=== PATIENT | male | born 1950 | race Caucasian/White ===

== ENCOUNTER 2018-03-22 14:35 | Inpatient (IN) ==
[2018-03-22] MEDS ORDERED: Naloxone 0.4 MG/ML INJ IVP PRN (17:00)
--- NOTE | 2018-03-22 17:38 | Internal Med History&Physical ---
Date of Encounter: 03/22/18 Time of Encounter: 17:28 Internal Medicine - H&P: HPI Chief complaint: Syncope, skin rash Admitted From: Home Plans for Post Hospital Care: Home History of present illness: Mr. Condon is a 68 year old male with PMH of Alcohol abuse, Variceal bleed in the past, HTN, HLD, GERD He is transferred to [facility] from an outside facility for management of syncope and skin rash The patient is seen and evaluated at the bedside reports he was sitting on the couch and went to get up and felt very dizzy and lightheaded believes he lost consciousness for maybe a couple of seconds after some blurriness of vision. His partner called the squad as this is never happened to him before. He reports a 3 days hx of non-bloody, non-mucoid diarrhea, and did not have breakfast prior to onset of his syncope. No chest pain or palpitations prior to events. NO seizure like movements, no post-event forgetfulness, no urinary or bowel incontinence. he denies fever or chills. He is also concerned about this skin rash that he has had recurrently for about 6 months. It get better and worse but not completely go away but does seem to fade from time to time. For the last week or so it has been much worse. He denies pruritus, he denies weeping, no hxof same rash in his partner who lives with him. He also reports he has had his house "cleaned up" but the rash persists. He has an associated conjunctival injection and looked generally unkempt. He states his last alcohol use was 3 years ago He also reports his PCP is "tired of the rash" bit he once had a referral to a caterpillar driver who placed him on antibiotics No other new medications. Denies illicit drug use Colonoscopy and EGD done ere in 02/2018 for iron deficiency anemia showed gastritis, as well as normal colonoscopy. H.pylori test at that time was negative. No abdominal pain no dark tarry stools no nausea no vomiting no diarrhea no fever no chills. No urinary symptoms. He is not have any recurrent lip mouth or genital lesions. HIs work up [facility] showed hyponatremia, leukocytosis, anemia worse than his baseline and thrombocytopenia worse than his baseline. TSH is WNL. Alcohol level is <10. 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 INFANT, - Social History Smoking Status: Never smoker Smokeless Tobacco Status: No Alcohol use: none Drug use: none - Family History Father Living Status: Hx Family Cardiac Disorders: Yes Internal Medicine - H&P: Meds ARIPiprazole [Abilify] 10 mg PO DAILY 03/20/15 [History] Omeprazole [PriLOSEC] 20 mg PO DAILY 03/20/15 [History] Simvastatin [Zocor] 20 mg PO HS 03/20/15 [History] Escitalopram [Lexapro] 20 mg PO DAILY 02/16/18 [History] Losartan Potassium [Cozaar] 50 mg PO DAILY 02/16/18 [History] Potassium Chloride [Klor-Con 10] 10 meq PO DAILY 02/16/18 [History] Tramadol HCl [Ultram] 50 mg PO BID PRN 02/16/18 [History] buPROPion HCl [Bupropion HCl Sr] 200 mg PO BID 02/16/18 [History] Ferrous Sulfate [Iron] 325 mg PO DAILY 02/17/18 [History] levoFLOXacin [Levofloxacin] 750 mg PO DAILY 03/22/18 [History] 3 Allergy/AdvReac Type Severity Reaction Status Date / Time No Known Allergies Allergy Verified 03/22/18 11:59 All Systems PM: A 10-system review of systems was performed and is negative for pertinent findings except as documented above in the HPI. - Constitutional Constitutional: as per HPI - EENT Eyes: as per HPI Ears: as per HPI Nose, mouth and throat: as per HPI - Cardiovascular Cardiovascular ROS IM: as per HPI - Respiratory Respiratory: as per HPI - Gastrointestinal Gastrointestinal: as per HPI - Musculoskeletal Musculoskeletal ROS IM: as per HPI - Integumentary Integumentary IM: as per HPI - Neurological Neurological ROS: as per HPI - Hematologic/Lymphatic Hematologic/Lymphatic: as per HPI - Constitutional Vitals: Temp Pulse Resp BP Pulse Ox 98.0 F 80 18 142/80 100 03/22/18 15:52 03/22/18 15:52 03/22/18 15:52 03/22/18 15:52 03/22/18 15:52 Exam: Gen: Unkempt, discheveled, not in distress HEENT: Diffuse conjunctival injection, moist oral mucosa, no sclera icterus NEuro: AAOX3, moves all extremities, no focal deficits Chest: CTAB, no added sounds HEart: S1, Split loud S2, no m/g/r Abdomen: Obese, not tender, no palpably enlarged organ, ventral hernia Skin: Diffuse erythematous raised well-circumscribed rossy under pressure nontender lesions. They appear to be very typical for erythema multiforme Extremities: Piting pedal edema Psych: Flat affect Internal Med - H&P Results - Labs CBC & Chem 7: 03/22/18 17:24 03/22/18 17:24 - Assessment and plan (1) Bicytopenia Current Visit: Yes Status: Acute Assessment and plan: Presented with anemia and thrombocytopenia He has a a medical history of anemia, recently as 02/20/18 had EGD and colonoscopy which showed gastritis and unremarkable findings respectively. No current source of bleeding We will consult hematology. Send hepatitis panel and anemia work up Continue to monitor (2) Erythema multiforme Current Visit: Yes Status: Acute Assessment and plan: Diffuse, recurrent according to patient, worsened in the past 2 weeks. The patient denies any fever or chills, denies sick contacts, denies genital lesions , he denies known history of hepatitis, he denies any oral lesions, however he has conjunctival injection. Send hepatitis panel, JHONATAN, uric acid levels, herpes simplex IgM and IgG, and routine labs. [employer] systems integration analyst consulted, requested patient's picture percent and by email, he would evaluate the patient tomorrow for possible skin biopsy. No Antibiotics indication at this time Place patient on isolation for now (3) Skin rash Current Visit: Yes Status: Acute Assessment and plan: as above (4) Syncope Current Visit: Yes Status: Acute Assessment and plan: Patient presented with syncope which was said to have lasted for about 2 minutes with no sequelae and no seizure-like movements, no bowel or urinary incontinence postevent. No preceding symptoms prior to event. Patient does report a history of diarrhea for the past 3 days, with poor oral intake. Mild leukocytosis with hypoosmolar hyponatremia on labs. In syncopal workup including echocardiogram-patient has split and loud S2 Keep on tele Follow ECHO, carotid USS, Head CT unremarkable, no neuro deficits Check orthostatics Fall precautions Qualifiers: Syncope type: unspecified Qualified Code(s): R55 - Syncope and collapse (5) DVT prophylaxis Current Visit: Yes Status: Acute Assessment and plan: SCDS due ot thrombocytopenia (6) HTN (hypertension) Current Visit: Yes Status: Chronic Assessment and plan: resume home meds Qualifiers: Hypertension type: essential hypertension Qualified Code(s): I10 - Essential (primary) hypertension (7) Hyperlipidemia Current Visit: Yes Status: Chronic Assessment and plan: continue home meds Qualifiers: Hyperlipidemia type: unspecified Qualified Code(s): E78.5 - Hyperlipidemia , unspecified (8) Hyponatremia Current Visit: Yes Status: Acute Assessment and plan: Presented with sodium of 121 to [place], with syncope Repeat Na here 124 without intervention Hypoosmolar, dilute urine Likely due to hypervolemia as patient also has pedal edema , with hx of heavy alcohol use, consider hyppalbuminemia Patient is also on multiple psych medications and 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 Obtain urine Na and osmolality TSH is WNL Fluid restriction for now, till urine results noed Monitor Na q6-7h (9) Alcohol abuse Current Visit: Yes Status: Chronic Assessment and plan: History of same, patient reports having quit alcohol for the past 3 years, will verify with family Alcohol level <10 Continue to monitor Will not initiate CIWA at this time (10) Depression Current Visit: Yes Status: Acute Assessment and plan: continue home meds Qualifiers: Depression Type: major depressive disorder Major depression recurrence: unspecified whether recurrent Active/Remission status: remission status unspecified Qualified Code(s): F32.9 - Major depressive disorder, single episode, unspecified (11) Hypokalemia Current Visit: Yes Status: Acute Assessment and plan: Replaced orally, continue to monitor - Time Spent With Patient Total time spent is greater than 50% in coordination of care (as documented) at patient's floor/unit and/or counseling patient:
[2018-03-22 17:41] LABS: Hemoglobin 8.3 g/dL (12.9-16.9); Monocytes % 7.7 %
[2018-03-22 17:42] LABS: Eosinophils # 0.3 K/mcL (0.0-0.6); Eosinophils % 3.7 %; Immature Granulocytes % 1.4 % (0-4); Lymphocytes # 0.9 K/mcL (0.6-4.6); Lymphocytes % 10.1 %; Mean Corpuscular HGB Conc 34.6 g/dL (31.6-35.5); Mean Corpuscular Hemoglobin 35.9 pg (28.0-33.3); Mean Corpuscular Volume 103.9 fL (83.0-100.0); Mean Platelet Volume 10.8 fL (9.4-12.4); Monocytes # 0.7 K/mcL (0.0-1.3); Neutrophils # 6.5 K/mcL (1.6-8.9); Red Blood Count 2.31 M/mcL (4.19-5.50); Red Cell Distribution Width 13.6 % (11.5-14.5); Segmented Neutrophils % 77.1 %
[2018-03-22 17:43] LABS: Platelet Count 83 K/mcL (140-400)
[2018-03-22 17:44] LABS: Bilirubin,Urine Negative (Negative); Blood,Urine Negative (Negative); Clarity,Urine Clear (Clear); Color,Urine Yellow (Yellow); Glucose,Urine (UA) Normal (Normal); Ketones,Urine Trace mg/dL (Negative); Leukocyte Esterase,Urine Negative (Negative); Nitrite,Urine Negative (Negative); PH,Urine 6.5 pH Units (5.0-8.0); Protein,Urine Negative (Neg-Trace); Specific Gravity,Urine 1.007 (1.010-1.025); Urobilinogen,Urine Normal (Normal)
[2018-03-22 18:02] LABS: Large Platelets Present (Not Present); Toxic Granulation Present (Not Present)
[2018-03-22 18:03] LABS: BUN/Creatinine Ratio 8 (6-26); Blood Urea Nitrogen 7 mg/dL (8-23); Calcium 8.9 mg/dL (8.6-10.3); Carbon Dioxide 24 mEq/L (23-29); Chloride 93 mEq/L (98-107); Glucose 96 mg/dL (70-105); Osmolality,Calculated 258 (280-300); Potassium 3.4 mEq/L (3.5-5.1); Sodium 125 mEq/L (136-145); Uric Acid 6.8 mg/dL (2.3-7.6); eGFR For Non-African Americans > 60 (> 60)
[2018-03-22 18:07] LABS: Chol/HDL Ratio 9.5 (0-4.9); Cholesterol 95 mg/dL (< 200); HDL Cholesterol 10 mg/dL (40-59); LDL Cholesterol,Calculated 55 mg/dL (0-99); Triglycerides 150 mg/dL (< 150)
[2018-03-22 18:08] LABS: Troponin I < 0.03 ng/mL (< 0.04)
[2018-03-22 18:51] LABS: Folate 17.9 ng/mL (3.0-16.0)
[2018-03-22 19:04] LABS: % Iron Saturation 6 % (20-55); Iron 13 mcg/dL (65-175); Transferrin 158 mg/dL (203-362)
[2018-03-22] MEDS: BuPROPion SR (12 HR) 100 MG TABLET PO SCH (21:24)
[2018-03-23 02:59] LABS: Hepatitis B Surface Antigen Nonreactive (Nonreactive); Hepatitis C Virus Antibody Nonreactive (Nonreactive)
[2018-03-23 05:51] LABS: Mean Platelet Volume 10.9 fL (9.4-12.4)
[2018-03-23 05:53] LABS: Basophils % 0.1 %; Eosinophils # 0.3 K/mcL (0.0-0.6); Hemoglobin 7.9 g/dL (12.9-16.9); Immature Granulocytes % 2.3 % (0-4); Lymphocytes # 0.9 K/mcL (0.6-4.6); Lymphocytes % 12.9 %; Mean Corpuscular HGB Conc 34.3 g/dL (31.6-35.5); Mean Corpuscular Hemoglobin 35.1 pg (28.0-33.3); Mean Corpuscular Volume 102.2 fL (83.0-100.0); Monocytes # 0.7 K/mcL (0.0-1.3); Monocytes % 9.5 %; Red Blood Count 2.25 M/mcL (4.19-5.50); Red Cell Distribution Width 13.5 % (11.5-14.5); Segmented Neutrophils % 71.2 %
[2018-03-23 06:12] LABS: BUN/Creatinine Ratio 7 (6-26); Blood Urea Nitrogen 6 mg/dL (8-23); Calcium 8.9 mg/dL (8.6-10.3); Carbon Dioxide 22 mEq/L (23-29); Chloride 96 mEq/L (98-107); Glucose 89 mg/dL (70-105); Osmolality,Calculated 263 (280-300); Potassium 3.7 mEq/L (3.5-5.1); Sodium 128 mEq/L (136-145); eGFR For Non-African Americans > 60 (> 60)
[2018-03-23 06:21] LABS: Platelet Count 97 K/mcL (140-400)
[2018-03-23 07:01] LABS: Platelet Estimate Decreased (Normal)
--- NOTE | 2018-03-23 09:33 | Internal Med Progress Note ---
Hospitalist Progress Note - Encounter Date of Encounter: 03/23/18 Time of Encounter: 09:31 - Subjective Interval History: Seen and examined at bedside 68 M with depression HTN hx f alcohol abuse and TACOS Admitted to obs and being managed for syncope and diffuse skin wash, likely erythema multiforme He complained of bilateral knee joint pains , he denies any other symptoms HB drop noted, he has had no BM since arrival Na is improving hep panel negative HSV pending derm eval pending - Exam Vitals: Temp Pulse Resp BP Pulse Ox 97.5 F L 77 15 101/55 96 03/23/18 07:14 03/23/18 07:14 03/23/18 07:14 03/23/18 07:14 03/23/18 07:14 Exam: Gen: Unkempt, discheveled, not in distress HEENT: Diffuse conjunctival injection, moist oral mucosa, no sclera icterus NEuro: AAOX3, moves all extremities, no focal deficits Chest: CTAB, no added sounds HEart: S1, Split loud S2, no m/g/r Abdomen: Obese, not tender, no palpably enlarged organ, ventral hernia Skin: Diffuse erythematous raised well-circumscribed rossy under pressure nontender lesions. They appear to be very typical for erythema multiforme Extremities: Piting pedal edema MSK: Bilateral knee effusion, crepitus R>L, no effusion Psych: Flat affect - Assessment and Plan (1) Bicytopenia Current Visit: Yes Status: Acute Assessment and Plan: Presented with anemia and thrombocytopenia He has a a medical history of anemia, recently as 02/20/18 had EGD and colonoscopy which showed gastritis and unremarkable findings respectively. No current source of bleeding Hep negative, Iron is low Onc eval is pending Continue to monitor (2) Erythema multiforme Current Visit: Yes Status: Acute Assessment and Plan: Suspected Diffuse, recurrent according to patient, worsened in the past 2 weeks. The patient denies any fever or chills, denies sick contacts, denies genital lesions , he denies known history of hepatitis, he denies any oral lesions, however he has conjunctival injection. Hep panel negative HSV IgM and IgG pending Derm consult appreciated RPR and Mycoplasma ordered Skin biopsy done by derm-recommend awaiting results, differentials include EM, vs urticarial vasculitis vs urticaria vs Sweet's syndrome vs Syphyilis Derm recommends awaiting biopsy result prior to treatment Patient complaining of bilateral knee joint pain, Xray shows no acute findings, he also has conjunctival injection, BOO is pending, will consider rheumatology eval (3) Skin rash Current Visit: Yes Status: Acute Assessment and Plan: as above (4) Syncope Current Visit: Yes Status: Acute Assessment and Plan: Patient presented with syncope which was said to have lasted for about 2 minutes with no sequelae and no seizure-like movements, no bowel or urinary incontinence postevent. No preceding symptoms prior to event. Patient does report a history of diarrhea for the past 3 days, with poor oral intake. Mild leukocytosis with hypoosmolar hyponatremia on labs, improving Head CT unremarkable, no neuro deficits ECHO noted for LVEF 65%, Severe Pulm HTN, BBB, mild , normal wall motion Carotid doppler final report pending Fall precautions (5) DVT prophylaxis Current Visit: Yes Status: Acute Assessment and Plan: SCDS due ot thrombocytopenia (6) HTN (hypertension) Current Visit: Yes Status: Chronic Assessment and Plan: controlled, continue home meds (7) Hyperlipidemia Current Visit: Yes Status: Chronic Assessment and Plan: continue home meds (8) Hyponatremia Current Visit: Yes Status: Acute Assessment and Plan: Presented with sodium of 121 to [place], with syncope Repeat Na here 124 without intervention Hypoosmolar, dilute urine Likely due to hypervolemia as patient also has pedal edema , with hx of heavy alcohol use, consider hyppalbuminemia Patient is also on multiple psych medications and 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 Urine osmolaity is low, 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 patient also has edema , and this may e due to cirrhosis TSH is WNL Na has improved to 128 from 121 without active intervention Continue to monitor (9) Alcohol abuse Current Visit: Yes Status: Chronic Assessment and Plan: History of same, patient reports having quit alcohol for the past 3 years, will verify with family Alcohol level <10 Continue to monitor Will not initiate CIWA at this time (10) Depression Current Visit: Yes Status: Chronic Assessment and Plan: continue home meds (11) Hypokalemia Current Visit: Yes Status: Resolved Assessment and Plan: resolved with treatment (12) Pedal edema Current Visit: Yes Status: Acute Assessment and Plan: ECHO noted-EF preserved Likely due to cirrhosis No ascites on exam Lasix po 40mg daily MOnitor I and Os - Time Spent with Patient Total time spent is greater than 50% in coordination of care (as documented) at patient's floor/unit and/or counseling patient: Plan of Care Discussed with: patient Internal Medicine: Result - Labs CBC & Chem 7: 03/23/18 05:01 03/23/18 05:01 Labs: Short CBC 03/22/18 03/23/18 Range/Units 17:24 05:01 WBC 8.4 7.0 (4.3-11.1) K/mcL Hgb 8.3 L 7.9 L (12.9-16.9) g/dL Hct 24.0 L 23.0 L (37.5-50.1) % Plt Count 83 L 97 L (140-400) K/mcL Neutrophils # 6.5 5.0 (1.6-8.9) K/mcL BMP 03/22/18 03/22/18 03/23/18 17:24 22:01 05:01 Sodium 125 L 126 L 128 L Potassium 3.4 L 3.7 Chloride 93 L 96 L Carbon Dioxide 24 22 L BUN 7 L 6 L Creatinine 0.89 0.82 Glucose 96 89 Calcium 8.9 8.9 Cardiac Enzymes 03/22/18 Range/Units 17:24 Troponin I < 0.03 (< 0.04) ng/mL Urine 03/22/18 Range/Units 17:30 Urine Color Yellow (Yellow) Urine Clarity Clear (Clear) Urine pH 6.5 (5.0-8.0) pH Units Ur Specific [place] 1.007 L (1.010-1.025) Urine Protein Negative (Neg-Trace) mg/dL Urine Glucose (UA) Normal (Normal) mg/dL Consult Discharge Plan - Plan Referrals: Brenda Koehler, REVERSE LOGISTICS ANALYST [Primary Care Provider] - (4) Syncope Qualifiers: Syncope type: unspecified Qualified Code(s): R55 - Syncope and collapse (6) HTN (hypertension) Qualifiers: Hypertension type: essential hypertension Qualified Code(s): I10 - Essential (primary) hypertension (7) Hyperlipidemia Qualifiers: Hyperlipidemia type: unspecified Qualified Code(s): E78.5 - Hyperlipidemia, unspecified (10) Depression Qualifiers: Depression Type: major depressive disorder Major depression recurrence: unspecified whether recurrent Active/Remission status: remission status unspecified Qualified Code(s): F32.9 - Major depressive disorder, single episode, unspecified
--- NOTE | 2018-03-23 10:50 | Oncology Inp Consult Note ---
<Maryam Macario - Last Filed: 03/23/18 18:40> Date of Encounter: 03/23/18 Time of Encounter: 10:00 Assessment and Plan (1) Bicytopenia Status: Acute Assessment and plan: Acute macrocytic anemia, hgb sondra today 7.9, MCV 104 on admission Concomitant Acute thrombocytopenia- sondra 97 Hepatitis screen non reactive History of alcohol abuse, denies alcohol use x3 years B12 and folate replete Iron low, add ferritin for full completeness Colonscopy:02/17/2018-normal EGD: Mild gastritis-biopsied- I do not see bx results? Patient denies and recent s/s bleeding Plan: Transfuse PRN for hgb <7 or symptomatic if <8 Check SPEP, serum free light chains, LDH Consider rheumatology workup (2) Skin rash Status: Acute Assessment and plan: Awaiting dermatology recommendations and skin punch bx May consider rheumatology consult for connective tissue disorder vs. vasculitis pending derm recommendation. - Data of Consult Requesting Physician: Wily Gonsales MD Primary Care Provider: Brenda Koehler CNP - Consult Narrative Reason for consult: Bicytopenia History of present illness: Mr. Condon is a 68 year old male with past history of alcohol abuse ( reports no alcohol use for 3 years now, but heavy alcohol abuse for the 6 years prior), h/o variceal bleeding, HTN, HLD and GERD. He presented to OSH following a syncopal episode. He reports 2 day history of non-bloody, watery diarrhea prior to the onset of syncopal episode. Patient states he lost consciousness and had associated blurry vision. His partner called the squad. He denies any seiazure like movements, loss of bladder or bowel function or confusion following this event. In addition to this, he also has a rash present to trunk and all extremities. The rash is non pruritic and has been present for about 6 months. No other house members have a rash. Rash has recently worsened over the past week. Patient states he had his house "cleaned up", there is questionable presence of bed bugs but no bugs found on patient from chart review. He apparently saw a laboratory chief for this rash but unable to tell me where/DrPeggy name, denies bx of the area and states he was placed on ATB treatment. He has also developed significant bilateral knee arthralgia about 4 days ago, making ambulation difficult. He denies fevers, chills, night sweats, appetite changes or unintended weight loss, photosensitivity, headache, visual changes, abdominal pain, nausea, vomiting, urinary complaint, calf pain or any s/s bleeding. Denies any new medications or medication changes. He reports SOB with exertion. He denies any recent sick contacts. He has 2 dogs and one cat in his home. He also exhibits bilateral conjunctival injection, denies drainage or vision loss, reports eyes "feel itchy". Mr. Condon has been admitted with bicytopenia (anemia/thrombocytopenia), rash, hyponatreamia and syncopal episode. 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 , - Social History Smoking Status: Never smoker Smokeless Tobacco Status: No Alcohol use: none Drug use: none - Family History Father Living Status: Hx Family Cardiac Disorders: Yes Medications and Allergies ARIPiprazole [Abilify] 10 mg PO DAILY 03/20/15 [History] Omeprazole [PriLOSEC] 20 mg PO DAILY 03/20/15 [History] Simvastatin [Zocor] 20 mg PO HS 03/20/15 [History] Escitalopram [Lexapro] 20 mg PO DAILY 02/16/18 [History] Losartan Potassium [Cozaar] 50 mg PO DAILY 02/16/18 [History] Potassium Chloride [Klor-Con 10] 10 meq PO DAILY 02/16/18 [History] Tramadol HCl [Ultram] 50 mg PO BID PRN 02/16/18 [History] buPROPion HCl [Bupropion HCl Sr] 200 mg PO BID 02/16/18 [History] Ferrous Sulfate [Iron] 325 mg PO DAILY 02/17/18 [History] levoFLOXacin [Levofloxacin] 750 mg PO DAILY 03/22/18 [History] 3 Allergy/AdvReac Type Severity Reaction Status Date / Time No Known Allergies Allergy Verified 03/22/18 11:59 Constitutional: Present: fatigue, weakness. Absent: anorexia, chills, fever(s) , headache(s), night sweats, weight loss Eyes: Present: itchy eyes. Absent: change in vision, discharge, photophobia Nose, mouth and throat: Absent: dysphagia, odynophagia Cardiovascular: Present: lightheadedness (syncopal episode prior to admission), syncope. Absent: chest pain, palpitations Respiratory: Present: dyspnea on exertion. Absent: cough, hemoptysis Gastrointestinal: Present: diarrhea (resolved since admission). Absent: abdominal pain, change in bowel habits, hematemesis, hematochezia, melena, nausea, vomiting Additional comments: denies dysuria or hematuria Musculoskeletal: Present: arthralgias. Absent: muscle weakness Integumentary: Present: as per HPI, rash, unusual bruising. Absent: photosensitivity, wounds Neurological: Present: as per HPI. Absent: focal weakness, frequent falls Psychiatric: Present: depression Endocrine: Present: as per HPI Hematologic/Lymphatic: Present: as per HPI Allergic/Immunologic: Present: itchy eyes. Absent: wheezing Oncology - Exam - Constitutional Vitals: Temp Pulse Resp BP Pulse Ox 97.5 F L 77 15 101/55 96 03/23/18 07:14 03/23/18 07:14 03/23/18 07:14 03/23/18 07:14 03/23/18 07:14 General appearance: cooperative, disheveled, no acute distress, no febrile - Eye Additional comments: conjunctival injection - ENT ENT exam: Present: mucous membranes moist - Respiratory Respiratory exam: Present: decreased breath sounds. Absent: respiratory distress - Cardiovascular Cardiovascular exam: Present: RRR, +S1, +S2 - GI/Abdominal GI/Abdominal exam: Present: normal bowel sounds, soft. Absent: guarding, rebound, tenderness - Extremities Exam Extremities exam: Absent: calf tenderness Additional comments: BLE non pitting edema - Neurological Exam Neurological exam: Present: alert, oriented X3, no focal deficits, strengths equal and symetr throughout - Psychiatric Psychiatric exam: Present: normal affect, normal mood Oncology - Results Labs: 3 03/23/18 03/23/18 03/22/18 05:01 05:01 22:01 WBC 7.0 RBC 2.25 L Hgb 7.9 L Hct 23.0 L MCV 102.2 H MCH 35.1 H MCHC 34.3 RDW 13.5 Plt Count 97 L MPV 10.9 Immature Gran % 2.3 Seg Neutrophils % 71.2 Lymphocytes % 12.9 Monocytes % 9.5 Eosinophils % 4.0 Basophils % 0.1 Neutrophils # 5.0 Lymphocytes # 0.9 Monocytes # 0.7 Eosinophils # 0.3 Basophils # 0.0 Toxic Granulation Platelet Estimate Decreased L Large Platelets Immature Plt Fraction 9.0 H Sodium 128 L 126 L Potassium 3.7 Chloride 96 L Carbon Dioxide 22 L BUN 6 L Creatinine 0.82 Est GFR ( Amer) > 60 Est GFR (Non-Af Amer) > 60 BUN/Creatinine Ratio 7 Glucose 89 POC Glucose Calculated Osmolality 263 L Uric Acid Calcium 8.9 Magnesium Iron % Saturation Transferrin Troponin I Triglycerides Cholesterol LDL Cholesterol, Calc VLDL Cholesterol, Calc HDL Cholesterol Cholesterol/HDL Ratio Vitamin B12 Folate Urine Color Urine Clarity Urine pH Ur Specific [place] Urine Protein Urine Glucose (UA) Urine Ketones Urine Blood Urine Nitrite Urine Bilirubin Urine Urobilinogen Ur Leukocyte Esterase Urine Osmolality Urine Sodium Hep Bs Antigen Hep Bs Antibody Hepatitis C Ab Screen 3 03/22/18 03/22/18 03/22/18 20:37 17:30 17:30 WBC RBC Hgb Hct MCV MCH MCHC RDW Plt Count MPV Immature Gran % Seg Neutrophils % Lymphocytes % Monocytes % Eosinophils % Basophils % Neutrophils # Lymphocytes # Monocytes # Eosinophils # Basophils # Toxic Granulation Platelet Estimate Large Platelets Immature Plt Fraction Sodium Potassium Chloride Carbon Dioxide BUN Creatinine Est GFR ( Amer) Est GFR (Non-Af Amer) BUN/Creatinine Ratio Glucose POC Glucose 96 Calculated Osmolality Uric Acid Calcium Magnesium Iron % Saturation Transferrin Troponin I Triglycerides Cholesterol LDL Cholesterol, Calc VLDL Cholesterol, Calc HDL Cholesterol Cholesterol/HDL Ratio Vitamin B12 Folate Urine Color Urine Clarity Urine pH Ur Specific [place] Urine Protein Urine Glucose (UA) Urine Ketones Urine Blood Urine Nitrite Urine Bilirubin Urine Urobilinogen Ur Leukocyte Esterase Urine Osmolality 174 L Urine Sodium 18.5 Hep Bs Antigen Hep Bs Antibody Hepatitis C Ab Screen 3 03/22/18 03/22/18 03/22/18 17:30 17:24 17:24 WBC RBC Hgb Hct MCV MCH MCHC RDW Plt Count MPV Immature Gran % Seg Neutrophils % Lymphocytes % Monocytes % Eosinophils % Basophils % Neutrophils # Lymphocytes # Monocytes # Eosinophils # Basophils # Toxic Granulation Platelet Estimate Large Platelets Immature Plt Fraction Sodium Potassium Chloride Carbon Dioxide BUN Creatinine Est GFR ( Amer) Est GFR (Non-Af Amer) BUN/Creatinine Ratio Glucose POC Glucose Calculated Osmolality Uric Acid Calcium Magnesium Iron % Saturation Transferrin Troponin I Triglycerides Cholesterol LDL Cholesterol, Calc VLDL Cholesterol, Calc HDL Cholesterol Cholesterol/HDL Ratio Vitamin B12 685 Folate 17.9 H Urine Color Yellow Urine Clarity Clear Urine pH 6.5 Ur Specific [place] 1.007 L Urine Protein Negative Urine Glucose (UA) Normal Urine Ketones Trace H Urine Blood Negative Urine Nitrite Negative Urine Bilirubin Negative Urine Urobilinogen Normal Ur Leukocyte Esterase Negative Urine Osmolality Urine Sodium Hep Bs Antigen Nonreactive Hep Bs Antibody 0.00 Hepatitis C Ab Screen Nonreactive 3 03/22/18 03/22/18 03/22/18 17:24 17:24 17:24 WBC 8.4 RBC 2.31 L Hgb 8.3 L Hct 24.0 L MCV 103.9 H MCH 35.9 H MCHC 34.6 RDW 13.6 Plt Count 83 L MPV 10.8 Immature Gran % 1.4 Seg Neutrophils % 77.1 Lymphocytes % 10.1 Monocytes % 7.7 Eosinophils % 3.7 Basophils % 0.0 Neutrophils # 6.5 Lymphocytes # 0.9 Monocytes # 0.7 Eosinophils # 0.3 Basophils # 0.0 Toxic Granulation Present A Platelet Estimate Large Platelets Present A Immature Plt Fraction 10.0 H Sodium 125 L Potassium 3.4 L Chloride 93 L Carbon Dioxide 24 BUN 7 L Creatinine 0.89 Est GFR ( Amer) > 60 Est GFR (Non-Af Amer) > 60 BUN/Creatinine Ratio 8 Glucose 96 POC Glucose Calculated Osmolality 258 L Uric Acid 6.8 Calcium 8.9 Magnesium 2.0 Iron 13 L % Saturation 6 L Transferrin 158 L Troponin I < 0.03 Triglycerides 150 H Cholesterol 95 LDL Cholesterol, Calc 55 VLDL Cholesterol, Calc 30 HDL Cholesterol 10 L Cholesterol/HDL Ratio 9.5 H Vitamin B12 Folate Urine Color Urine Clarity Urine pH Ur Specific [place] Urine Protein Urine Glucose (UA) Urine Ketones Urine Blood Urine Nitrite Urine Bilirubin Urine Urobilinogen Ur Leukocyte Esterase Urine Osmolality Urine Sodium Hep Bs Antigen Hep Bs Antibody Hepatitis C Ab Screen 3 03/22/18 16:39 WBC RBC Hgb Hct MCV MCH MCHC RDW Plt Count MPV Immature Gran % Seg Neutrophils % Lymphocytes % Monocytes % Eosinophils % Basophils % Neutrophils # Lymphocytes # Monocytes # Eosinophils # Basophils # Toxic Granulation Platelet Estimate Large Platelets Immature Plt Fraction Sodium Potassium Chloride Carbon Dioxide BUN Creatinine Est GFR ( Amer) Est GFR (Non-Af Amer) BUN/Creatinine Ratio Glucose POC Glucose 94 Calculated Osmolality Uric Acid Calcium Magnesium Iron % Saturation Transferrin Troponin I Triglycerides Cholesterol LDL Cholesterol, Calc VLDL Cholesterol, Calc HDL Cholesterol Cholesterol/HDL Ratio Vitamin B12 Folate Urine Color Urine Clarity Urine pH Ur Specific [place] Urine Protein Urine Glucose (UA) Urine Ketones Urine Blood Urine Nitrite Urine Bilirubin Urine Urobilinogen Ur Leukocyte Esterase Urine Osmolality Urine Sodium Hep Bs Antigen Hep Bs Antibody Hepatitis C Ab Screen Consult Discharge Plan - Plan Referrals: Brenda Koehler CNP [Primary Care Provider] - <Shonna Erazo - Last Filed: 03/23/18 18:52> Date of Encounter: 03/23/18 - Data of Consult Requesting Physician: Wily Gonsales MD Primary Care Provider: Brenda Koehler CNP - Consult Narrative History of present illness: I examined this patient and my medical decision-making was reviewed with the Advanced Practice Nurse, Maryam Macario. I agree with the documented findings, disposition and treatment plan as described except to the extent set forth below. Hx alcoholism, ?varices-Ct abd/pelvis to be obtained. Macocytosis skin rash papular erythematous diffuse s/p bx. Add cryoglobulins. Oncology - Exam - Constitutional Vitals: Temp Pulse Resp BP Pulse Ox 98.6 F 72 16 103/58 98 03/23/18 16:22 03/23/18 16:22 03/23/18 16:22 03/23/18 16:22 03/23/18 16:22 Oncology - Results Labs: 3 03/23/18 03/23/18 03/23/18 07:16 05:01 05:01 WBC 7.0 RBC 2.25 L Hgb 7.9 L Hct 23.0 L MCV 102.2 H MCH 35.1 H MCHC 34.3 RDW 13.5 Plt Count 97 L MPV 10.9 Immature Gran % 2.3 Seg Neutrophils % 71.2 Lymphocytes % 12.9 Monocytes % 9.5 Eosinophils % 4.0 Basophils % 0.1 Neutrophils # 5.0 Lymphocytes # 0.9 Monocytes # 0.7 Eosinophils # 0.3 Basophils # 0.0 Toxic Granulation Platelet Estimate Decreased L Large Platelets Immature Plt Fraction 9.0 H Sodium 128 L Potassium 3.7 Chloride 96 L Carbon Dioxide 22 L BUN 6 L Creatinine 0.82 Est GFR ( Amer) > 60 Est GFR (Non-Af Amer) > 60 BUN/Creatinine Ratio 7 Glucose 89 POC Glucose 95 Calculated Osmolality 263 L Uric Acid Calcium 8.9 Magnesium Iron % Saturation Transferrin Troponin I Triglycerides Cholesterol LDL Cholesterol, Calc VLDL Cholesterol, Calc HDL Cholesterol Cholesterol/HDL Ratio Vitamin B12 Folate Urine Color Urine Clarity Urine pH Ur Specific [place] Urine Protein Urine Glucose (UA) Urine Ketones Urine Blood Urine Nitrite Urine Bilirubin Urine Urobilinogen Ur Leukocyte Esterase Urine Osmolality Urine Sodium Hep Bs Antigen Hep Bs Antibody Hepatitis C Ab Screen 3 03/22/18 03/22/18 03/22/18 22:01 20:37 17:30 WBC RBC Hgb Hct MCV MCH MCHC RDW Plt Count MPV Immature Gran % Seg Neutrophils % Lymphocytes % Monocytes % Eosinophils % Basophils % Neutrophils # Lymphocytes # Monocytes # Eosinophils # Basophils # Toxic Granulation Platelet Estimate Large Platelets Immature Plt Fraction Sodium 126 L Potassium Chloride Carbon Dioxide BUN Creatinine Est GFR ( Amer) Est GFR (Non-Af Amer) BUN/Creatinine Ratio Glucose POC Glucose 96 Calculated Osmolality Uric Acid Calcium Magnesium Iron % Saturation Transferrin Troponin I Triglycerides Cholesterol LDL Cholesterol, Calc VLDL Cholesterol, Calc HDL Cholesterol Cholesterol/HDL Ratio Vitamin B12 Folate Urine Color Urine Clarity Urine pH Ur Specific [place] Urine Protein Urine Glucose (UA) Urine Ketones Urine Blood Urine Nitrite Urine Bilirubin Urine Urobilinogen Ur Leukocyte Esterase Urine Osmolality 174 L Urine Sodium Hep Bs Antigen Hep Bs Antibody Hepatitis C Ab Screen 3 03/22/18 03/22/18 03/22/18 17:30 17:30 17:24 WBC RBC Hgb Hct MCV MCH MCHC RDW Plt Count MPV Immature Gran % Seg Neutrophils % Lymphocytes % Monocytes % Eosinophils % Basophils % Neutrophils # Lymphocytes # Monocytes # Eosinophils # Basophils # Toxic Granulation Platelet Estimate Large Platelets Immature Plt Fraction Sodium Potassium Chloride Carbon Dioxide BUN Creatinine Est GFR ( Amer) Est GFR (Non-Af Amer) BUN/Creatinine Ratio Glucose POC Glucose Calculated Osmolality Uric Acid Calcium Magnesium Iron % Saturation Transferrin Troponin I Triglycerides Cholesterol LDL Cholesterol, Calc VLDL Cholesterol, Calc HDL Cholesterol Cholesterol/HDL Ratio Vitamin B12 685 Folate 17.9 H Urine Color Yellow Urine Clarity Clear Urine pH 6.5 Ur Specific [place] 1.007 L Urine Protein Negative Urine Glucose (UA) Normal Urine Ketones Trace H Urine Blood Negative Urine Nitrite Negative Urine Bilirubin Negative Urine Urobilinogen Normal Ur Leukocyte Esterase Negative Urine Osmolality Urine Sodium 18.5 Hep Bs Antigen Hep Bs Antibody Hepatitis C Ab Screen 3 03/22/18 03/22/18 03/22/18 17:24 17:24 17:24 WBC RBC Hgb Hct MCV MCH MCHC RDW Plt Count MPV Immature Gran % Seg Neutrophils % Lymphocytes % Monocytes % Eosinophils % Basophils % Neutrophils # Lymphocytes # Monocytes # Eosinophils # Basophils # Toxic Granulation Platelet Estimate Large Platelets Immature Plt Fraction Sodium 125 L Potassium 3.4 L Chloride 93 L Carbon Dioxide 24 BUN 7 L Creatinine 0.89 Est GFR ( Amer) > 60 Est GFR (Non-Af Amer) > 60 BUN/Creatinine Ratio 8 Glucose 96 POC Glucose Calculated Osmolality 258 L Uric Acid 6.8 Calcium 8.9 Magnesium 2.0 Iron 13 L % Saturation 6 L Transferrin 158 L Troponin I < 0.03 Triglycerides 150 H Cholesterol 95 LDL Cholesterol, Calc 55 VLDL Cholesterol, Calc 30 HDL Cholesterol 10 L Cholesterol/HDL Ratio 9.5 H Vitamin B12 Folate Urine Color Urine Clarity Urine pH Ur Specific [place] Urine Protein Urine Glucose (UA) Urine Ketones Urine Blood Urine Nitrite Urine Bilirubin Urine Urobilinogen Ur Leukocyte Esterase Urine Osmolality Urine Sodium Hep Bs Antigen Nonreactive Hep Bs Antibody 0.00 Hepatitis C Ab Screen Nonreactive 3 03/22/18 03/22/18 17:24 16:39 WBC 8.4 RBC 2.31 L Hgb 8.3 L Hct 24.0 L MCV 103.9 H MCH 35.9 H MCHC 34.6 RDW 13.6 Plt Count 83 L MPV 10.8 Immature Gran % 1.4 Seg Neutrophils % 77.1 Lymphocytes % 10.1 Monocytes % 7.7 Eosinophils % 3.7 Basophils % 0.0 Neutrophils # 6.5 Lymphocytes # 0.9 Monocytes # 0.7 Eosinophils # 0.3 Basophils # 0.0 Toxic Granulation Present A Platelet Estimate Large Platelets Present A Immature Plt Fraction 10.0 H Sodium Potassium Chloride Carbon Dioxide BUN Creatinine Est GFR ( Amer) Est GFR (Non-Af Amer) BUN/Creatinine Ratio Glucose POC Glucose 94 Calculated Osmolality Uric Acid Calcium Magnesium Iron % Saturation Transferrin Troponin I Triglycerides Cholesterol LDL Cholesterol, Calc VLDL Cholesterol, Calc HDL Cholesterol Cholesterol/HDL Ratio Vitamin B12 Folate Urine Color Urine Clarity Urine pH Ur Specific [place] Urine Protein Urine Glucose (UA) Urine Ketones Urine Blood Urine Nitrite Urine Bilirubin Urine Urobilinogen Ur Leukocyte Esterase Urine Osmolality Urine Sodium Hep Bs Antigen Hep Bs Antibody Hepatitis C Ab Screen Inpatient Charges Provider: Dr. Omer Erazo Consult - Inpatient: [id number]
[2018-03-23] MEDS: ARIPiprazole 10 MG TABLET PO SCH (10:55)
[2018-03-23] MEDS: Ascorbic Acid 500 MG TABLET PO SCH (10:55)
[2018-03-23] MEDS: BuPROPion SR (12 HR) 100 MG TABLET PO SCH ×2 (10:56→21:33)
--- NOTE | 2018-03-23 11:27 | Dermatology Consult Note ---
Date of Encounter: 03/23/18 Time of Encounter: 11:25 History of Present Illness Reason for Consult: rash History of Present Illness: Chetan Condon, is a 68-year-old male admitted to the hospital for syncope and a skin rash. He presents with a rash that he reports has been on and off for over 6 months. He states that he has been on oral antibiotics with little change in the rash. He denies pain and itching. He denies ulcers in his mouth around his eyes or involving his groin. he has had recent diarrhea. Review of Systems General/Constitutional: Patient denies fevers, chills, nor recent unintended weight loss, night sweats, no change in appetite or malaise. Hematologic: Patient denies new or enlarging lumps or bumps. Skin: Patient denies new or changing moles, or rash other than what is mentioned above. 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 INFANT, - Social History Smoking Status: Never smoker Smokeless Tobacco Status: No Alcohol use: none Drug use: none - Family History Father Living Status: Hx Family Cardiac Disorders: Yes Medications and Allergies ARIPiprazole [Abilify] 10 mg PO DAILY 03/20/15 [History] Omeprazole [PriLOSEC] 20 mg PO DAILY 03/20/15 [History] Simvastatin [Zocor] 20 mg PO HS 03/20/15 [History] Escitalopram [Lexapro] 20 mg PO DAILY 02/16/18 [History] Losartan Potassium [Cozaar] 50 mg PO DAILY 02/16/18 [History] Potassium Chloride [Klor-Con 10] 10 meq PO DAILY 02/16/18 [History] Tramadol HCl [Ultram] 50 mg PO BID PRN 02/16/18 [History] buPROPion HCl [Bupropion HCl Sr] 200 mg PO BID 02/16/18 [History] Ferrous Sulfate [Iron] 325 mg PO DAILY 02/17/18 [History] levoFLOXacin [Levofloxacin] 750 mg PO DAILY 03/22/18 [History] 3 Allergy/AdvReac Type Severity Reaction Status Date / Time No Known Allergies Allergy Verified 03/22/18 11:59 Examination Vital Signs: Temp Pulse Resp BP Pulse Ox 97.5 F L 77 15 101/55 96 03/23/18 07:14 03/23/18 07:14 03/23/18 07:14 03/23/18 07:14 03/23/18 07:14 The patient appears alert, oriented X 3, in no acute distress, healthy-appearing , normal mood.A detailed skin examination of sites including; scalp, head, neck , face, conjunctiva, lids, lips, back, chest/breast/axilla, abdomen, bilateral upper extremities including hands/digits/ fingernails, bilateral lower extremities including feet,/digits/toenails, anus, genital/groin/ buttock, was completed and found to be normal except: edematous 3mm-1.2cm wheals with surrounding pupuraon chest, abdomen, back, arms , and central purpura in taretoid apperance on legs bilaterally - 4mm purple macules on soles and palms bilaterally - no oral ulcerations, no ocular ulcerations, no genital ulcerations noted General Examination: The patient appears alert, oriented X3, in no acute distress, healthy-appearing , normal mood. A detailed skin examination of sites including: scalp, head, neck , face, conjunctive, lids, lips, back, chest/breast/axilla, abdomen, bilateral upper extremities including hands/digits/fingernails, bilateral lower extremities including feet/digits/toenails, genital/groin/buttock, lymph nodes, was completed and found to be normal except: - Assessment and Plan (1) Rash and other nonspecific skin eruption Current Visit: Yes Status: Acute Skin biopsy performed today to rule out Erythema multiforme ( usually secondary to HSV ( HSV pending) , walking pneumonia or or medications) vs urticarial vasculitis vs urticaria vs Sweet's syndrome vs Syphyilis ( it may be worth while to check an RPR as well to rule this out) vs doubt bug bites - -- the lack of symptoms makes arthropod bites less likely since he is not complaining of symptoms, I recommend waiting for pathology results - this may take a week - prior to further treatment Procedure: Dermatology Date of procedure: 03/23/18 Procedure: Punch biopsy(s) of the lesion noted above to establish and confirm diagnosis. The procedure, risks, benefits, alternatives and expected outcomes were discussed with the patient and consent was obtained. Time out called. Patient identified, procedure verified, site(s) identified and verified. Patient and staff present in agreement. Area(s) prepped with alcohol and anesthetized with 1.0% lidocaine with epinephrine at 1:100,000 concentration. 2 ml of lidocaine with epinephrine were injected left thigh Biopsy(s) of lesion performed. Lesion( s) closed with 3-0 prolene suture and bandaging applied. Specimen(s) sent to pathology. Patient instructed in routine post-op care. Patient instructed in routine post-op care and wound care handout given. Consult Discharge Plan - Plan Referrals: Brenda Koehler, ARLETTE [Primary Care Provider] -
[2018-03-23] MEDS: traMADol 50 MG TABLET PO PRN ×2 (11:29→21:33)
[2018-03-23] MEDS: Furosemide 40 MG TABLET PO SCH (12:31)
[2018-03-24 05:22] LABS: Hematocrit 23.5 % (37.5-50.1); Mean Corpuscular Hemoglobin 35.1 pg (28.0-33.3); Mean Corpuscular Volume 103.1 fL (83.0-100.0); Mean Platelet Volume 10.7 fL (9.4-12.4); Platelet Count 129 K/mcL (140-400); Red Blood Count 2.28 M/mcL (4.19-5.50); Red Cell Distribution Width 13.8 % (11.5-14.5)
[2018-03-24 05:38] LABS: BUN/Creatinine Ratio 13 (6-26); Blood Urea Nitrogen 10 mg/dL (8-23); Calcium 9.2 mg/dL (8.6-10.3); Carbon Dioxide 23 mEq/L (23-29); Chloride 99 mEq/L (98-107); Glucose 123 mg/dL (70-105); Osmolality,Calculated 270 (280-300); Potassium 3.6 mEq/L (3.5-5.1); Sodium 130 mEq/L (136-145); eGFR For Non-African Americans > 60 (> 60)
[2018-03-24 06:01] LABS: Eosinophils # 0.7 K/mcL (0.0-0.6); Large Platelets Present (Not Present); Lymphocytes # 1.6 K/mcL (0.6-4.6); Macrocytosis Present (Not Present); Monocytes # 0.5 K/mcL (0.0-1.3); Platelet Estimate Slight Decrease (Normal)
[2018-03-24] MEDS: traMADol 50 MG TABLET PO PRN ×2 (06:30→22:51)
[2018-03-24] MEDS ORDERED: Isovue-370 500 ML INFUS..BTL IV ONE (07:43)
[2018-03-24] MEDS: Ascorbic Acid 500 MG TABLET PO SCH (09:51)
[2018-03-24] MEDS: BuPROPion SR (12 HR) 100 MG TABLET PO SCH ×2 (09:51→22:40)
[2018-03-24] MEDS: ARIPiprazole 10 MG TABLET PO SCH (09:51)
[2018-03-24] MEDS: Furosemide 40 MG TABLET PO SCH (09:52)
--- NOTE | 2018-03-24 10:12 | Internal Med Progress Note ---
Hospitalist Progress Note - Encounter Date of Encounter: 03/24/18 Time of Encounter: 10:12 - Subjective Interval History: Seen and examined at bedside 68 M with depression HTN hx f alcohol abuse and TACOS Admitted to obs and being managed for syncope and diffuse skin wash, likely erythema multiforme He complained of bilateral knee joint pains , he denies any other symptoms, Knee Xray was unremarkable HB is stable, so is PLT count hep panel negative, HSV pending, RPR negative HSV panel and Mycoplasma pending ECHO noted for severe Pulm HTN This a,m he has worsening conjunctival injection I will consult clothing worker - Exam Vitals: Temp Pulse Resp BP Pulse Ox 98.2 F 68 19 109/68 97 03/24/18 07:37 03/24/18 07:37 03/24/18 07:37 03/24/18 07:37 03/24/18 07:37 Exam: Gen: Unkempt, discheveled, not in distress HEENT: Diffuse conjunctival injection, moist oral mucosa, no sclera icterus NEuro: AAOX3, moves all extremities, no focal deficits Chest: CTAB, no added sounds HEart: S1, Split loud S2, no m/g/r Abdomen: Obese, not tender, no palpably enlarged organ, ventral hernia Skin: Diffuse erythematous raised well-circumscribed rossy under pressure non- tender lesions. They appear to be very typical for erythema multiforme Extremities: Piting pedal edema MSK: Bilateral knee, crepitus R>L, no effusion, no warmth Psych: Flat affect - Assessment and Plan (1) Bicytopenia Current Visit: Yes Status: Acute Assessment and Plan: Presented with anemia and thrombocytopenia He has a a medical history of anemia, recently as 02/20/18 had EGD and colonoscopy which showed gastritis and unremarkable findings respectively. No current source of bleeding Hep negative, Iron is low Onc eval is noted Will transfue for hb <7 Continue to monitor (2) Erythema multiforme Current Visit: Yes Status: Acute Assessment and Plan: Suspected Diffuse, recurrent according to patient, worsened in the past 2 weeks. The patient denies any fever or chills, denies sick contacts, denies genital lesions , he denies known history of hepatitis, he denies any oral lesions, however he has conjunctival injection. Hep panel negative, RPR negative HSV IgM and IgG pending, Mycoplasma, BOO, SPEP pending Derm consult appreciated Skin biopsy done by derm-recommend awaiting results, differentials include EM, vs urticarial vasculitis vs urticaria vs Sweet's syndrome vs Syphyilis Derm recommends awaiting biopsy result prior to treatment Patient complaining of bilateral knee joint pain, Xray shows no acute findings, he also has conjunctival injection, BOO is pending, Worsening conjunctival injectin, will start cipro eye drops and will consult rheumatology (3) Skin rash Current Visit: Yes Status: Acute Assessment and Plan: as above (4) Syncope Current Visit: Yes Status: Acute Assessment and Plan: Patient presented with syncope which was said to have lasted for about 2 minutes with no sequelae and no seizure-like movements, no bowel or urinary incontinence postevent. No preceding symptoms prior to event. Patient does report a history of diarrhea for the past 3 days, with poor oral intake. Mild leukocytosis with hypoosmolar hyponatremia on labs, improving Head CT unremarkable, no neuro deficits ECHO noted for LVEF 65%, Severe Pulm HTN, BBB, mild , normal wall motion Carotid doppler with no significant stenosis No events on tele, continue to monitor Fall precautions (5) DVT prophylaxis Current Visit: Yes Status: Acute Assessment and Plan: SCDS due to thrombocytopenia (6) HTN (hypertension) Current Visit: Yes Status: Chronic Assessment and Plan: controlled, continue home meds (7) Hyperlipidemia Current Visit: Yes Status: Chronic Assessment and Plan: continue home meds (8) Hyponatremia Current Visit: Yes Status: Acute Assessment and Plan: Presented with sodium of 121 to angie, with syncope Repeat Na here 124 without intervention Hypoosmolar, dilute urine Likely due to hypervolemia as patient also has pedal edema , with hx of heavy alcohol use, consider hyppalbuminemia Patient is also on multiple psych medications and 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 Urine osmolaity is low, 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 patient also has edema , and this may be due to cirrhosis TSH is WNL Na is improving Continue current management (9) Alcohol abuse Current Visit: Yes Status: Chronic Assessment and Plan: History of same, patient reports having quit alcohol for the past 3 years, will verify with family Alcohol level <10 Continue to monitor Will not initiate CIWA at this time (10) Depression Current Visit: Yes Status: Chronic Assessment and Plan: continue home meds (11) Hypokalemia Current Visit: Yes Status: Resolved Assessment and Plan: resolved with treatment (12) Pedal edema Current Visit: Yes Status: Acute Assessment and Plan: ECHO noted-EF preserved Likely due to cirrhosis No ascites on exam Lasix po 40mg daily MOnitor I and Os - Time Spent with Patient Total time spent is greater than 50% in coordination of care (as documented) at patient's floor/unit and/or counseling patient: Plan of Care Discussed with: patient Internal Medicine: Result - Labs CBC & Chem 7: 03/24/18 04:52 03/24/18 04:52 Labs: Short CBC 03/24/18 Range/Units 04:52 WBC 8.8 (4.3-11.1) K/mcL Hgb 8.0 L (12.9-16.9) g/dL Hct 23.5 L (37.5-50.1) % Plt Count 129 L (140-400) K/mcL Neutrophils # 6.0 (1.6-8.9) K/mcL BMP 03/24/18 04:52 Sodium 130 L Potassium 3.6 Chloride 99 Carbon Dioxide 23 BUN 10 Creatinine 0.77 Glucose 123 H Calcium 9.2 - Impressions Impressions Echocardiogram 03/22/18 17:10 Impressions: LVEF 65%. Normal LV chamber size, wall thickness and function. Atypical septal motion consistent with bundle branch block. Mild left ventricular diastolic dysfunction. Normal right ventricular structure and function. Mild aortic sclerosis suggested by Doppler. Mean gradient 13 mmHg. Visually, the AV opens adequately. Mild tricuspid regurgitation. Severe pulmonary hypertension. Knee X-Ray 03/23/18 09:33 IMPRESSION: 1. Small nonspecific left knee effusion. 2. Mild tricompartmental degenerative changes. 3. No radiographic evidence of acute fracture or dislocation. D/ / Ji Cortez MD / Ji Cortez MD Interpreting Provider: Ji Cortez MD Abdomen/Pelvis CT 03/24/18 08:15 IMPRESSION: 1. No acute intra-abdominal abnormality to account for the patient's symptoms. 2. No hepatosplenomegaly. 3. Normal appendix. D/ / 03/24/2018 09:37:35 Giana Dowling MD / cornelio Interpreting Provider: Giana Dowling MD Consult Discharge Plan - Plan Referrals: Brenda Koehler VOICE INTERCEPT TECHNICIAN [Primary Care Provider] - (4) Syncope Qualifiers: Syncope type: unspecified Qualified Code(s): R55 - Syncope and collapse (6) HTN (hypertension) Qualifiers: Hypertension type: essential hypertension Qualified Code(s): I10 - Essential (primary) hypertension (7) Hyperlipidemia Qualifiers: Hyperlipidemia type: unspecified Qualified Code(s): E78.5 - Hyperlipidemia, unspecified (10) Depression Qualifiers: Depression Type: major depressive disorder Major depression recurrence: unspecified whether recurrent Active/Remission status: remission status unspecified Qualified Code(s): F32.9 - Major depressive disorder, single episode, unspecified
[2018-03-24] MEDS ORDERED: Ciprofloxacin OPTH Soln 2.5 ML BOTTLE LEFT EYE SCH (16:00)
[2018-03-24] MEDS ORDERED: Ciprofloxacin OPTH Soln 2.5 ML BOTTLE RIGHT EYE SCH (16:00)
[2018-03-24 16:19] LABS: Ferritin 505 ng/mL (20-250)
[2018-03-24] MEDS: Ciprofloxacin HCL Soln 5 ML BOTTLE BOTH EYES SCH ×2 (22:39→23:07)
[2018-03-25 05:15] LABS: Hematocrit 23.2 % (37.5-50.1); Hemoglobin 7.8 g/dL (12.9-16.9); Mean Corpuscular HGB Conc 33.6 g/dL (31.6-35.5); Mean Corpuscular Hemoglobin 35.3 pg (28.0-33.3); Mean Platelet Volume 10.6 fL (9.4-12.4); Platelet Count 143 K/mcL (140-400); Red Blood Count 2.21 M/mcL (4.19-5.50)
[2018-03-25] MEDS: Ciprofloxacin HCL Soln 5 ML BOTTLE BOTH EYES SCH ×5 (05:31→21:07)
[2018-03-25 05:33] LABS: BUN/Creatinine Ratio 13 (6-26); Blood Urea Nitrogen 9 mg/dL (8-23); Calcium 9.1 mg/dL (8.6-10.3); Carbon Dioxide 25 mEq/L (23-29); Chloride 101 mEq/L (98-107); Glucose 110 mg/dL (70-105); Osmolality,Calculated 277 (280-300); Potassium 3.6 mEq/L (3.5-5.1); Sodium 134 mEq/L (136-145); eGFR For Non-African Americans > 60 (> 60)
[2018-03-25 06:38] LABS: Eosinophils # 0.3 K/mcL (0.0-0.6); Lymphocytes # 1.3 K/mcL (0.6-4.6); Monocytes # 0.4 K/mcL (0.0-1.3); Neutrophils # 4.9 K/mcL (1.6-8.9); Platelet Estimate Normal (Normal)
[2018-03-25] MEDS: ARIPiprazole 10 MG TABLET PO SCH (09:15)
[2018-03-25] MEDS: Ascorbic Acid 500 MG TABLET PO SCH (09:16)
[2018-03-25] MEDS: BuPROPion SR (12 HR) 100 MG TABLET PO SCH ×2 (09:16→21:07)
[2018-03-25] MEDS: Furosemide 40 MG TABLET PO SCH (09:22)
--- NOTE | 2018-03-25 09:30 | Rheumatology Consult Note ---
<Jose Luis Wilson - Last Filed: 03/25/18 13:23> Date of Encounter: 03/25/18 Time of Encounter: 09:19 Rheumatology Assess and Plan (1) Rash and other nonspecific skin eruption Current Visit: Yes Status: Acute 62M presents with intermittent erhythematous circular raised rash that is intermittend and started about six months ago. He reports no specific triggers. CT abdomen/pelvis: unremarkable. Bilateral knee Xrays: left knee effusion with mild tricompartmental degenerative changes. EV Echo from 03/22: EF 65%, mild diastolic dysfunction, mild , severe pulmonary HTN. Skin biopsy done by derm on 03/23: results pending. hepatitis panel, RPR negative Etiology unclear at this time. Suspect autoimmune cause. also consider iatrogenic cause, malignancy, infectious causes. Specifically, concern for urticarial vasculitis-await biopsy results. Plan: BOO, HSV IgG and IgM, cryoglobulin levels, SPEP pending Appreciate Heme/onc and Derm recommendations. awaiting results from skin biopsy. ESR, CRP, C3, C4, CPK, anti-Scl-70, [id number]-8, ANCA antibodies, HIV antibody pending. 2V CXR pending to look for systemic signs of vasculitis. (2) Polyarthralgia Current Visit: Yes Status: Acute patient reports pain in bilateral knees and shoulders. plan as above Rheumatology HPI Consult date: 03/24/18 Requesting physician: Wily Gonsales Consult reason: rash Chief complaint: syncope History of present illness: Mr. Condon is a 68 year old male with PMHx of alcohol abuse (reports he has not had a drink in the past three years), history of esophageal varices, HTN , GERD. Patient arrived to [facility] as a transfer from [place] on 03/22/18 with chief complaint of syncope on day of admission. Patient states that he was sitting on the couch watching TV when he got up to go use the bathroom and felt very lightheaded and dizzy and then fell back onto the cough. This episode was witnessed by his girlfriend and patient states that he lost consciousness for about 3-5 seconds. After this happened, they called the squad. He denies any tongue biting, incontinence. He was slightly confused when he regained consciousness. He states he had not been drinking or using illicit drugs. Patient complains of a rash that is intermittent and first appeared about 7 months ago. The rash is an erythematous and raised, and of various sizes but most are circular. The rash comes and goes and does not itch. He as tried antibiotics without any relief and he has never tried benadryl or any antihistaines. He has never seen an artillery specialist for the rash. He has no known food or drug allergies, and does not report any increased stressors in his life. He reports no recent canges in medication or changes in his diet, and cannot associate any triggors with the rash. He denies nausea, vomiting, diarrhea, fevers, chills, chest pain. Patient also reports joint pain in bilateral knees and bilateral shoulders that has been present for about 6-7 months, and started around the same time his rash started. He denies any further complaints today. He is retired and lives at home with his girlfriend. 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 INFANT, - Social History Smoking Status: Never smoker Smokeless Tobacco Status: No Alcohol use: none Drug use: none - Family History Father Living Status: Hx Family Cardiac Disorders: Yes Medications and Allergies Omeprazole [PriLOSEC] 20 mg PO DAILY 03/20/15 [History] Simvastatin [Zocor] 20 mg PO HS 03/20/15 [History] Escitalopram [Lexapro] 20 mg PO DAILY 02/16/18 [History] Potassium Chloride [Klor-Con 10] 10 meq PO DAILY 02/16/18 [History] Tramadol HCl [Ultram] 50 mg PO BID PRN 02/16/18 [History] buPROPion HCl [Bupropion HCl Sr] 200 mg PO BID 02/16/18 [History] Ferrous Sulfate [Iron] 325 mg PO DAILY 02/17/18 [History] Aripiprazole [Abilify] 15 mg PO DAILY 03/25/18 [History] Losartan/Hydrochlorothiazide [Losartan-Hctz 50-12.5 mg Tab] 1 tab PO DAILY 03/25 [History] Minocycline [Minocin] 50 mg PO DAILY 03/25/18 [History] Omeprazole [PriLOSEC] 40 mg PO DAILY 03/25/18 [History] 3 Allergy/AdvReac Type Severity Reaction Status Date / Time No Known Allergies Allergy Verified 03/22/18 11:59 All Systems Review: General: no weight changes, fevers, chills. Neuro: no history of seizures, confusion. ENT: no oral or nasal ulcers. Respiratory: no cough, hemoptysis. Reports occasional shortness of breath when laying down. Cardiovascular: no chest pain, history of serositis. GI: no melena, hematochezia, abdominal pain. He does report history of GERD. Heme/Onc: no history of malignancy or blood clots. Skin: no alopecia. Reports rash as per HPI. Admits to history of Raynauds. no genital ulcers. MSK: reports joint pain in bilateral knees and bilateral shoulders x6 months. No joint swelling ID: reports no history of STDs. Rheumatology Exam Vital Signs, Last 4 Hours Temp Pulse Resp BP Pulse Ox 03/25/18 07:56 97.3 F L 74 16 105/65 97 03/25/18 05:39 114/66 Exam: General: alert and oriented x3. obese. pleaseant, no acute distress. afebrile, normal heart rate, normotensive. ENT: normal inspection of ears, nose, nasal and oral mucosa. Oral mucosa appears moist. No lesions or masses of the lips or gums. CV: regular rate and rhythm, normal S1, S2, no murmurs, rubs, gallops, or thrills appreciated. +1 bilateral lower extremity pitting edema present. Eyes: no scleral icterus, PERRL, intact extraocular movements, normal appearing conjunctiva and eyelids. Respiratory: normal respiratory effort, no intercostal retraction or accessory muscle use. No dullness to percussion. Mild wheezping present on right lung. GI: abdomen obese, soft, non distended, non tender. Bowel sounds present. No organomegaly or hernias appreciated. SKin: No ulcers noted. Diffuse areas of erythematous circular patches present on bilateral thighs, legs, arms, back, and abdomen, and chest. No abnormal nail findings. neuro: cranial nerves 2-12 intact, no focal deficits. No pathologic reflexes present. intact sensation. MSK: No clubbing or cyanosis of the extremities present. Shoulders: patient cannot abduct the shoulders past 90 degrees due to pain. wrists/hands: full ROM, no erythema, warmth, tenderness bilateral knees: mild warmth, tenderness to palpation present. No effusion appreciated, no erythema. No laxity on varus or valgus stress. Anterior drawr test negative. Muscle strength: 5/5 on upper and lower extremities. normal range of motion of ankles Rheumatology Results 03/25/18 04:31 10 04:31 All other labs normal. Consult Discharge Plan - Plan Referrals: Brenda Koehler, ARLETTE [Primary Care Provider] - <Levon Tabares - Last Filed: 03/25/18 14:03> Date of Encounter: 03/25/18 Rheumatology HPI History of present illness: Mr. Condon is a 68 year old male All Systems Review: The remainder of the systems were reviewed and are negative Rheumatology Exam Vital Signs, Last 4 Hours Temp Pulse Resp BP Pulse Ox 03/25/18 11:13 97.8 F 83 15 117/68 97 Rheumatology Results 03/25/18 04:31 03/25/18 04:31 All other labs normal. - Attending Attestation I examined this patient and my medical decision making was reviewed with the resident physician. I agree with the documented findings, disposition and treatment as described with these exceptions. Chetan Condon is a 68-year-old male with PMH of HLD, HTN, GERD, varices who presents to the hospital with a syncopal episode, cytopenias and a rash. 6-7 month history of rash. Previous biopsy in [facility] nondiagnostic that was obtained by PCP. Rash comes and goes, lasting 14 days and leaves behind hyperpigmentation; it is nonpruritic. Reports polyarthralgias and swelling in his knees. TTE with evidence suggestive of pulmonary hypertension. Hepatitis, treponema negative. UA without RBCs/protein. CBC with macrocytic anemia. Hematology consulted and workup in place, derm consulted and biopsy completed. At this time, with his rash, cytopenia there may be an underlying systemic illness, possibly a connective tissue disease; cutaneous history concerning for urticarial vasculitis but differential remains broad. Will complete autoimmune serologic workup. Add CXR. Hematology/oncology workup pending. Until we have some more information from serologies/biopsy, will hold off on any systemic therapy. I will be back in the hospital to round on Wednesday if the patient is still present otherwise will set him up for an outpatient follow-up in 1-2 weeks.
--- NOTE | 2018-03-25 12:32 | Internal Med Progress Note ---
Hospitalist Progress Note - Encounter Date of Encounter: 03/25/18 Time of Encounter: 11:55 - Subjective Interval History: Patient seen and examined this morning. No acute overnight events. Denies new complains. Lightheadedness improved. No cp, sob, abdominal pain, Urinary or bowel complains. No vision complain. Rash still present which is not bothering him at all. - Exam Vitals: Temp Pulse Resp BP Pulse Ox 97.8 F 83 15 117/68 97 03/25/18 11:13 03/25/18 11:13 03/25/18 11:13 03/25/18 11:13 03/25/18 11:13 Exam: General: In no acute distress. Conversant. Obese. unkempt HEENT: Mild conjunctival injection. No oral or nasopharyngeal ulcers. Grossly normal hearing. Respiratory exam: CTAB. no accessory muscle use, rales, rhonchi, wheezes Cardiovascular exam: RRR, +S1, Loud S2. no murmur, gallop, rubs. GI/Abdominal exam: Non-tender, Non-distended, normal bowel sounds, soft, no peritoneal signs. Extremities exam: full ROM, 1+ pedal edema, warm, pulses palpable in b/l lower extremities. no calf tenderness Neurological exam: CN II-XII intact, AO X3, no focal deficits. no pronater drift , facial droop, speech deficit Skin exam: Generalized rash, maculopapular, differing in size. Non tender without scales. Blanching. Bandage on Lt thigh at site of biopsy. Some targetoid lesions. No oral lesions. Pysch: Flat affect. - Assessment and Plan (1) Alcohol abuse Current Visit: Yes Status: Chronic (2) HTN (hypertension) Current Visit: Yes Status: Chronic (3) Hyponatremia Current Visit: Yes Status: Acute (4) DVT prophylaxis Current Visit: Yes Status: Acute (5) Hyperlipidemia Current Visit: Yes Status: Chronic (6) Bicytopenia Current Visit: Yes Status: Acute (7) Erythema multiforme Current Visit: Yes Status: Acute (8) Skin rash Current Visit: Yes Status: Acute (9) Syncope Current Visit: Yes Status: Acute (10) Depression Current Visit: Yes Status: Chronic (11) Hypokalemia Current Visit: Yes Status: Resolved (12) Pedal edema Current Visit: Yes Status: Acute - Summary of Assessment and Plan Summary of Assessment and Plan: Rash - long staing for about 6-7 months worsening past 2 weeks. No mucosal involvement - CT abdomen/pelvis unremarkable. Knee Xrays with mild degenerative changes. - ECHO- EF 65%, sev PHTN, mild DD, mild aortic sclerois - s/p Skin biopsy done by alda on 03/23. Pending path. may take a week - hepatitis panel, RPR negative - Rheumatology and dermatology following. recommendation appreciated - f/u BOO, HSV IgG and IgM, cryoglobulin levels - Differential of EM vs urticarial vasculitis vs urticaria vs sweet's syndrome Anemia and thrombocytopenia - Macrocytic anemai. B12 and folate normal. - 02/20/18 had EGD and colonoscopy which showed gastritis and unremarkable findings respectively. - No current source of bleeding - Hep negative, Iron is low. Ferritin elevated, LDH normal. - Onc recommendation appreciated. f/u SPEP, serum free light chains. - Will transfue for hb <7 - Monitor for now. Syncope - h/o diarrhea for the past 3 days, with poor oral intake. - Mild leukocytosis with hypoosmolar hyponatremia on labs, improving - Head CT unremarkable, no neuro deficits - ECHO noted for LVEF 65%, Severe Pulm HTN, BBB, mild , normal wall motion - Carotid doppler with no significant stenosis - No events on tele, continue to monitor - Fall precautions - improving. Hyponatremia - improving - Likely related to hypervolemia. - c/w lasix. Pedal edema - ECHO noted-EF preserved. Mild DD. - Likely due to cirrhosis and body habitus - No ascites on exam - Lasix po 40mg daily DVT prophylaxis - SCDS due to thrombocytopenia HTN - c/w home losartan HLD - c/w home simvastatin Depression - c/w abilify and lexapro - Time Spent with Patient Total time spent is greater than 50% in coordination of care (as documented) at patient's floor/unit and/or counseling patient: Internal Medicine: Result - Labs CBC & Chem 7: 03/25/18 04:31 03/25/18 04:31 Labs: Short CBC 03/25/18 Range/Units 04:31 WBC 7.0 (4.3-11.1) K/mcL Hgb 7.8 L (12.9-16.9) g/dL Hct 23.2 L (37.5-50.1) % Plt Count 143 (140-400) K/mcL Neutrophils # 4.9 (1.6-8.9) K/mcL BMP 03/24/18 03/25/18 04:52 04:31 Sodium 130 L 134 L Potassium 3.6 3.6 Chloride 99 101 Carbon Dioxide 23 25 BUN 10 9 Creatinine 0.77 0.71 Glucose 123 H 110 H Calcium 9.2 9.1 Consult Discharge Plan - Plan Referrals: Brenda Koehler, [employer] [Primary Care Provider] - (2) HTN (hypertension) Qualifiers: Hypertension type: essential hypertension Qualified Code(s): I10 - Essential (primary) hypertension (5) Hyperlipidemia Qualifiers: Hyperlipidemia type: unspecified Qualified Code(s): E78.5 - Hyperlipidemia, unspecified (9) Syncope Qualifiers: Syncope type: unspecified Qualified Code(s): R55 - Syncope and collapse (10) Depression Qualifiers: Depression Type: major depressive disorder Major depression recurrence: unspecified whether recurrent Active/Remission status: remission status unspecified Qualified Code(s): F32.9 - Major depressive disorder, single episode, unspecified
[2018-03-25 14:15] LABS: ANA IgG by ELISA NONE DETECTED (None Detected)
[2018-03-25 14:22] LABS: Herpes Simplex IgG (I&II COMB) >22.40 IV
[2018-03-25 14:44] LABS: C-Reactive Protein 86 mg/L (Less than 10); Creatine Kinase 38 Units/L (30-223)
--- NOTE | 2018-03-25 20:20 | Oncology Inp Progress Note ---
<Marcos Tobin S - Last Filed: 03/28/18 16:59> Date of Encounter: 03/25/18 - Constitutional Vitals: Vital Signs Temp Pulse Pulse Pulse Pulse Resp BP 03/28/18 16:36 97.6 F 71 18 114/62 03/28/18 12:17 75 75 75 03/28/18 11:59 71 72 74 03/28/18 11:23 97.3 F L 68 17 124/72 03/28/18 07:16 98.3 F 72 16 126/71 03/28/18 02:37 99.1 F 71 16 122/63 03/27/18 23:27 98.6 F 71 16 126/63 03/27/18 19:03 98.1 F 64 16 111/68 BP BP BP Pulse Ox 03/28/18 16:36 100 03/28/18 12:17 118/73 119/72 124/69 03/28/18 11:59 120/63 113/70 119/66 03/28/18 11:23 96 03/28/18 07:16 97 03/28/18 02:37 98 03/27/18 23:27 96 03/27/18 19:03 98 Intake and Output 03/28/18 03/28/18 03/28/18 07:59 15:59 23:59 Intake Total 240 / 240 Output Total 300 / 300 Balance -300 / -300 240 / 240 Intake: Oral 240 / 240 Output: Urine 300 / 300 Other: Meal Lunch Percent of Meal Consumed 90% Weight 106.7 kg Patient Weight 03/28/18 23:59 Weight 106.7 kg Oncology: Obj Data - Labs CBC & Chem 7: 03/28/18 03:38 03/28/18 03:38 Labs: Laboratory Results - last 24 hr 03/22/18 03/23/18 03/24/18 17:24 13:30 04:52 WBC RBC Hgb Hct MCV MCH MCHC RDW Plt Count MPV Seg Neutrophils % Lymphocytes % Monocytes % Eosinophils % Metamyelocytes % Neutrophils # Lymphocytes # Monocytes # Eosinophils # Platelet Estimate Sodium Potassium Chloride Carbon Dioxide BUN Creatinine Est GFR ( Amer) Est GFR (Non-Af Amer) BUN/Creatinine Ratio Glucose Calculated Osmolality Calcium Prot Electrophor EER SEE NOTE Total Protein (PEP) 6.10 Albumin (PEP) 2.88 L Qypuo-1-Nljczwrqf 0.66 H Btzal-1-Kqpqvqurl 0.81 Beta Globulins 0.69 Gamma Globulins 1.06 PEP Interpretation SEE NOTE Serum Immunofix Reflex RAMON Done IgG 1050 IgA 268 IgM 130 Scl-70 IgG Ab Complement C3 Complement C4 HSV I&II IgM Ab 0.38 Mycoplasma pneumon IgG 0.28 H Mycoplasma pneumon IgM 0.08 03/25/18 03/25/18 03/28/18 13:54 13:54 03:38 WBC 6.0 RBC 2.16 L Hgb 7.6 L Hct 23.5 L MCV 108.8 H MCH 35.2 H MCHC 32.3 RDW 14.0 Plt Count 175 MPV 10.3 Seg Neutrophils % 72.0 Lymphocytes % 10.0 Monocytes % 14.0 Eosinophils % 2.0 Metamyelocytes % 2.0 H Neutrophils # 4.3 Lymphocytes # 0.6 Monocytes # 0.8 Eosinophils # 0.1 Platelet Estimate Normal Sodium Potassium Chloride Carbon Dioxide BUN Creatinine Est GFR ( Amer) Est GFR (Non-Af Amer) BUN/Creatinine Ratio Glucose Calculated Osmolality Calcium Prot Electrophor EER Total Protein (PEP) Albumin (PEP) Jaiff-7-Mkfpusehu Wbsel-8-Nsvowmuya Beta Globulins Gamma Globulins PEP Interpretation Serum Immunofix Reflex IgG IgA IgM Scl-70 IgG Ab 1 Complement C3 111 Complement C4 27 HSV I&II IgM Ab Mycoplasma pneumon IgG Mycoplasma pneumon IgM 03/28/18 03:38 WBC RBC Hgb Hct MCV MCH MCHC RDW Plt Count MPV Seg Neutrophils % Lymphocytes % Monocytes % Eosinophils % Metamyelocytes % Neutrophils # Lymphocytes # Monocytes # Eosinophils # Platelet Estimate Sodium 134 L Potassium 3.7 Chloride 103 Carbon Dioxide 25 BUN 12 Creatinine 0.76 Est GFR ( Amer) > 60 Est GFR (Non-Af Amer) > 60 BUN/Creatinine Ratio 16 Glucose 114 H Calculated Osmolality 279 L Calcium 9.0 Prot Electrophor EER Total Protein (PEP) Albumin (PEP) Yvkqa-2-Vmuzrwdbr Jijob-2-Beksjgpni Beta Globulins Gamma Globulins PEP Interpretation Serum Immunofix Reflex IgG IgA IgM Scl-70 IgG Ab Complement C3 Complement C4 HSV I&II IgM Ab Mycoplasma pneumon IgG Mycoplasma pneumon IgM Consult Discharge Plan - Plan Referrals: Brenda Koehler, FLOOR TECHNICIAN [Primary Care Provider] - (Hospital follow up appointment has been requested. Office will call you with date and time of appointment. If they do not call you, call them. ) Prescriptions: Furosemide [Lasix] 40 mg PO DAILY #14 tablet - Attending Attestation I examined this patient and my medical decision-making was reviewed with the Advanced Practice Nurse. I agree with the documented findings, disposition and treatment plan as described except to the extent set forth below. 1. Progressive maculopapular rash in the trunk for the last 6 months. Skin biopsy showed non specific changes consisting of perivascular chronic inflammation with extravated red Blood cells, differential diagnosis includes stasis or other type of dermatitis Viral hepatitis panel and HIV testing negative Serum protein electrophoresis negative Vasculitis is still a consideration. Rheumatology consult. ANCA testing pending 2. Macrocytic anemia hemoglobin around 7.8 MCV 108. B12 folate and TSH normal. No evidence of hemolysis. Ferritin elevated at 551 but iron saturation low If necessary would proceed with bone marrow biopsy <Maryam Macario - Last Filed: 03/30/18 12:56> Date of Encounter: 03/25/18 Time of Encounter: 17:30 (1) Bicytopenia Status: Acute Assessment and plan: Acute macrocytic anemia, MCV 104 on admission Concomitant Acute thrombocytopenia- sondra 97--Resolved Hepatitis and HIV screen non reactive History of alcohol abuse, denies alcohol use x3 years Abdomen/Pelvis CT without findings of cirrhosis B12 and folate replete Iron low, add ferritin for completeness Colonscopy:02/17/2018-normal EGD: Mild gastritis-biopsied- I do not see bx results? Patient denies and recent s/s bleeding Elevated ESR and CRP Plan: Appreciate Rheumatology recommendations- ANCA antibodies and Cryoglobulins pending among rheum workup Transfuse PRN for hgb <7 or symptomatic if <8 SPEP pending Jes-pending (2) Skin rash Status: Acute Assessment and plan: Erythematous maculopapular rash x6 months Dermatology consulted-skin punch bx is pending Rheumatology consulted, recommendations reviewed Oncology: Subj Interval history: Mr. Condon has no physical complaints presently. He denies pain. Rash present to trunk and extremities. No visual complaints. Conjunctival injection improving. Denies s/s bleeding, CP, Nausea, Vomiting or Diarrhea. - Constitutional Vitals: Vital Signs Temp Pulse Resp BP Pulse Ox 03/25/18 19:34 97.7 F 71 16 107/61 96 03/25/18 15:39 98.9 F 72 16 113/65 99 03/25/18 11:13 97.8 F 83 15 117/68 97 03/25/18 07:56 97.3 F L 74 16 105/65 97 03/25/18 05:39 114/66 03/25/18 03:46 98.3 F 67 17 95/62 95 03/24/18 23:50 98.6 F 77 16 115/68 96 Intake and Output 03/25/18 03/25/18 03/25/18 07:59 15:59 23:59 Intake Total 0 / 0 Output Total 75 / 75 100 / 100 Balance -75 / -75 -100 / -100 Intake: Oral 0 / 0 Output: Urine 75 / 75 100 / 100 Other: Meal Lunch Percent of Meal Consumed 0% Weight 107.2 kg Patient Weight 03/25/18 23:59 Weight 107.2 kg General appearance: cooperative, no acute distress, no febrile - Head Head exam: Present: atraumatic - ENT ENT exam: Present: mucous membranes moist - Respiratory Respiratory exam: Present: CTAB. Absent: respiratory distress - Cardiovascular Cardiovascular exam: Present: RRR, +S1, +S2 - GI/Abdominal GI/Abdominal exam: Present: normal bowel sounds, soft. Absent: tenderness - Extremities Exam Extremities exam: Absent: calf tenderness - Neurological Exam Neurological exam: Present: alert, oriented X3, no focal deficits, strengths equal and symetr throughout - Psychiatric Psychiatric exam: Present: flat affect - Skin Additional comments: maculopapular rash with some target lesions, diffuse and throughout trunk/ extremities x4. Oncology: Obj Data - Labs CBC & Chem 7: 03/28/18 03:38 03/28/18 03:38 - Impressions Impressions Chest X-Ray 03/25/18 13:37 IMPRESSION: Outward bulging of the left-sided mediastinum, differential considerations include enlargement of the main pulmonary artery, adenopathy or a mass. Recommend further evaluation with a CT of the chest with intravenous contrast. D/ / Paul Hernandez MD / Paul Hernandez MD Interpreting Provider: Paul Hernandez MD Inpatient Charges Provider: Dr. Raul Tobin
[2018-03-26] MEDS: Ciprofloxacin HCL Soln 5 ML BOTTLE BOTH EYES SCH ×6 (00:27→20:17)
[2018-03-26 04:00] LABS: Hematocrit 24.8 % (37.5-50.1); Hemoglobin 8.1 g/dL (12.9-16.9); Mean Corpuscular HGB Conc 32.7 g/dL (31.6-35.5); Mean Corpuscular Hemoglobin 35.5 pg (28.0-33.3); Mean Corpuscular Volume 108.8 fL (83.0-100.0); Mean Platelet Volume 10.4 fL (9.4-12.4); Monocytes # 0.8 K/mcL (0.0-1.3); Platelet Count 153 K/mcL (140-400); Red Blood Count 2.28 M/mcL (4.19-5.50); Red Cell Distribution Width 14.1 % (11.5-14.5)
[2018-03-26 04:17] LABS: BUN/Creatinine Ratio 14 (6-26); Blood Urea Nitrogen 11 mg/dL (8-23); Carbon Dioxide 25 mEq/L (23-29); Chloride 101 mEq/L (98-107); Glucose 102 mg/dL (70-105); Osmolality,Calculated 278 (280-300); Potassium 3.8 mEq/L (3.5-5.1); Sodium 134 mEq/L (136-145); eGFR For Non-African Americans > 60 (> 60)
[2018-03-26 04:48] LABS: Eosinophils # 0.1 K/mcL (0.0-0.6); Lymphocytes # 0.9 K/mcL (0.6-4.6); Neutrophils # 4.6 K/mcL (1.6-8.9); Platelet Estimate Normal (Normal); Reactive Lymphocytes Present (Not Present)
[2018-03-26 04:50] LABS: Anisocytosis 1+ (Not Present); Large Platelets Present (Not Present)
[2018-03-26] MEDS: BuPROPion SR (12 HR) 100 MG TABLET PO SCH ×2 (08:15→20:17)
[2018-03-26] MEDS: Ascorbic Acid 500 MG TABLET PO SCH (08:16)
[2018-03-26] MEDS: Furosemide 40 MG TABLET PO SCH (08:16)
[2018-03-26] MEDS: ARIPiprazole 10 MG TABLET PO SCH (08:16)
--- NOTE | 2018-03-26 12:19 | Internal Med Progress Note ---
Hospitalist Progress Note - Encounter Date of Encounter: 03/26/18 Time of Encounter: 12:19 - Subjective Interval History: Patient seen and examined at bedside he is sitting up eating lunch no acute overnight events. Denies any new complaints no lightheadedness at this time no chest pain shortness breath abdominal pain and urinary bowel complaints he does continue to have a full body rash. Denies any discomfort - Exam Vitals: Temp Pulse Resp BP Pulse Ox 97.3 F L 75 17 124/73 97 03/26/18 11:34 03/26/18 11:34 03/26/18 11:34 03/26/18 11:34 03/26/18 11:34 Exam: General: In no acute distress. Conversant. Obese. unkempt HEENT: Mild conjunctival injection. No oral or nasopharyngeal ulcers. Grossly normal hearing. Respiratory exam: CTAB. no accessory muscle use, rales, rhonchi, wheezes Cardiovascular exam: RRR, +S1, Loud S2. no murmur, gallop, rubs. GI/Abdominal exam: Non-tender, Non-distended, normal bowel sounds, soft, no peritoneal signs. Extremities exam: full ROM, 1+ pedal edema, warm, pulses palpable in b/l lower extremities. no calf tenderness Neurological exam: CN II-XII intact, AO X3, no focal deficits. no pronater drift , facial droop, speech deficit Skin exam: Generalized rash, maculopapular, differing in size. Non tender without scales. Blanching. Bandage on Lt thigh at site of biopsy. Some targetoid lesions. No oral lesions. Pysch: Flat affect. - Assessment and Plan (1) Alcohol abuse Current Visit: Yes Status: Chronic Assessment and Plan: History of same, patient reports having quit alcohol for the past 3 years, will verify with family Alcohol level <10 Continue to monitor Will not initiate CIWA at this time No signs or symptoms of withdrawal continue to monitor (2) HTN (hypertension) Current Visit: Yes Status: Chronic Assessment and Plan: controlled, continue home meds (3) Hyponatremia Current Visit: Yes Status: Acute Assessment and Plan: Presented with sodium of 121 to angie, with syncope Repeat Na here 124 without intervention Hypoosmolar, dilute urine Likely due to hypervolemia as patient also has pedal edema , with hx of heavy alcohol use, consider hyppalbuminemia Patient is also on multiple psych medications and 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 Urine osmolaity is low, 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 patient also has edema , and this may be due to cirrhosis TSH is WNL Na is improving Continue current management 03/26 Sodium 134 today we will continue with current management (4) DVT prophylaxis Current Visit: Yes Status: Acute Assessment and Plan: SCDS due to thrombocytopenia (5) Hyperlipidemia Current Visit: Yes Status: Chronic Assessment and Plan: continue home meds (6) Bicytopenia Current Visit: Yes Status: Acute Assessment and Plan: Presented with anemia and thrombocytopenia He has a a medical history of anemia, recently as 02/20/18 had EGD and colonoscopy which showed gastritis and unremarkable findings respectively. No current source of bleeding Hep negative, Iron is low Onc eval is noted Will transfue for hb <7 Continue to monitor 03/26 Hematology has been consulted and appreciate recommendations B12 and folate Iron is low and ferritin is high-continue ferrous sulfate (7) Erythema multiforme Current Visit: Yes Status: Acute Assessment and Plan: Suspected Diffuse, recurrent according to patient, worsened in the past 2 weeks. The patient denies any fever or chills, denies sick contacts, denies genital lesions , he denies known history of hepatitis, he denies any oral lesions, however he has conjunctival injection. Hep panel negative, RPR negative HSV IgM and IgG pending, Mycoplasma, BOO, SPEP pending Derm consult appreciated Skin biopsy done by derm-recommend awaiting results, differentials include EM, vs urticarial vasculitis vs urticaria vs Sweet's syndrome vs Syphyilis Derm recommends awaiting biopsy result prior to treatment Patient complaining of bilateral knee joint pain, Xray shows no acute findings, he also has conjunctival injection, BOO is pending, Worsening conjunctival injectin, will start cipro eye drops and will consult rheumatology 03/26 Suspected See above Continue with the Cipro eyedrops rheumatology to see patient appreciate recommendations (8) Skin rash Current Visit: Yes Status: Acute Assessment and Plan: as above (9) Syncope Current Visit: Yes Status: Acute Assessment and Plan: Patient presented with syncope which was said to have lasted for about 2 minutes with no sequelae and no seizure-like movements, no bowel or urinary incontinence postevent. No preceding symptoms prior to event. Patient does report a history of diarrhea for the past 3 days, with poor oral intake. Mild leukocytosis with hypoosmolar hyponatremia on labs, improving Head CT unremarkable, no neuro deficits ECHO noted for LVEF 65%, Severe Pulm HTN, BBB, mild , normal wall motion Carotid doppler with no significant stenosis No events on tele, continue to monitor Fall precautions 03/26 Suspect may be related to dehydration-see above (10) Depression Current Visit: Yes Status: Chronic Assessment and Plan: continue home meds (11) Hypokalemia Current Visit: Yes Status: Resolved Assessment and Plan: resolved with treatment (12) Pedal edema Current Visit: Yes Status: Acute Assessment and Plan: ECHO noted-EF preserved Likely due to cirrhosis No ascites on exam Lasix po 40mg daily MOnitor I and Os - Time Spent with Patient Total time spent is greater than 50% in coordination of care (as documented) at patient's floor/unit and/or counseling patient: Internal Medicine: Result - Labs CBC & Chem 7: 03/26/18 03:36 03/26/18 03:36 Labs: Short CBC 03/26/18 Range/Units 03:36 WBC 6.4 (4.3-11.1) K/mcL Hgb 8.1 L (12.9-16.9) g/dL Hct 24.8 L (37.5-50.1) % Plt Count 153 (140-400) K/mcL Neutrophils # 4.6 (1.6-8.9) K/mcL BMP 03/26/18 03:36 Sodium 134 L Potassium 3.8 Chloride 101 Carbon Dioxide 25 BUN 11 Creatinine 0.76 Glucose 102 Calcium 9.0 - Impressions Impressions Chest X-Ray 03/25/18 13:37 IMPRESSION: Outward bulging of the left-sided mediastinum, differential considerations include enlargement of the main pulmonary artery, adenopathy or a mass. Recommend further evaluation with a CT of the chest with intravenous contrast. D/ / Paul Hernandez MD / Paul Hernandez MD Interpreting Provider: Paul Hernandez MD Consult Discharge Plan - Plan Referrals: Brenda Koehler, LACE SEWER [Primary Care Provider] - (2) HTN (hypertension) Qualifiers: Hypertension type: essential hypertension Qualified Code(s): I10 - Essential (primary) hypertension (5) Hyperlipidemia Qualifiers: Hyperlipidemia type: unspecified Qualified Code(s): E78.5 - Hyperlipidemia, unspecified (9) Syncope Qualifiers: Syncope type: unspecified Qualified Code(s): R55 - Syncope and collapse (10) Depression Qualifiers: Depression Type: major depressive disorder Major depression recurrence: unspecified whether recurrent Active/Remission status: remission status unspecified Qualified Code(s): F32.9 - Major depressive disorder, single episode, unspecified
[2018-03-27] MEDS: Ciprofloxacin HCL Soln 5 ML BOTTLE BOTH EYES SCH ×7 (00:14→23:39)
[2018-03-27 02:05] LABS: Alpha 2 Globulin (PEP) 0.81 g/dL (0.48-1.05); Beta Globulin (PEP) 0.69 g/dL (0.48-1.10)
[2018-03-27 08:18] LABS: Basophils # 0.1 K/mcL (0.0-0.2); Basophils % 0.9 %; Eosinophils # 0.2 K/mcL (0.0-0.6); Eosinophils % 3.2 %; Hematocrit 23.3 % (37.5-50.1); Hemoglobin 7.5 g/dL (12.9-16.9); Immature Granulocytes % 12.6 % (0-4); Lymphocytes % 18.2 %; Mean Corpuscular HGB Conc 32.2 g/dL (31.6-35.5); Mean Corpuscular Hemoglobin 34.9 pg (28.0-33.3); Mean Corpuscular Volume 108.4 fL (83.0-100.0); Mean Platelet Volume 10.3 fL (9.4-12.4); Monocytes # 0.7 K/mcL (0.0-1.3); Monocytes % 12.1 %; Platelet Count 170 K/mcL (140-400); Red Blood Count 2.15 M/mcL (4.19-5.50)
[2018-03-27] MEDS: BuPROPion SR (12 HR) 100 MG TABLET PO SCH ×2 (08:31→20:27)
[2018-03-27] MEDS: Furosemide 40 MG TABLET PO SCH (08:31)
[2018-03-27] MEDS: Ascorbic Acid 500 MG TABLET PO SCH (08:31)
[2018-03-27] MEDS: ARIPiprazole 10 MG TABLET PO SCH (08:32)
[2018-03-27 08:38] LABS: BUN/Creatinine Ratio 16 (6-26); Blood Urea Nitrogen 12 mg/dL (8-23); Calcium 8.9 mg/dL (8.6-10.3); Carbon Dioxide 26 mEq/L (23-29); Chloride 103 mEq/L (98-107); Glucose 110 mg/dL (70-105); Osmolality,Calculated 282 (280-300); Potassium 3.8 mEq/L (3.5-5.1); Sodium 136 mEq/L (136-145); eGFR For Non-African Americans > 60 (> 60)
[2018-03-27 09:10] LABS: Platelet Estimate Slight Decrease (Normal)
[2018-03-27] MEDS ORDERED: Isovue-370 500 ML INFUS..BTL IV ONE (10:13)
--- NOTE | 2018-03-27 18:18 | Internal Med Progress Note ---
Hospitalist Progress Note - Encounter Date of Encounter: 03/27/18 Time of Encounter: 11:00 - Subjective Interval History: Patient seen and examined at bedside -denies any pain or discomfort advised patient we will obtain CT of chest due to outward bulging of the left-sided mediastinum. Patient verbalized understanding - Exam Vitals: Temp Pulse Resp BP Pulse Ox 97.9 F 85 15 114/80 97 03/27/18 15:17 03/27/18 15:17 03/27/18 15:17 03/27/18 15:17 03/27/18 15:17 Exam: General: In no acute distress. Conversant. Obese. unkempt HEENT: Mild conjunctival injection. No oral or nasopharyngeal ulcers. Grossly normal hearing. Respiratory exam: CTAB. no accessory muscle use, rales, rhonchi, wheezes Cardiovascular exam: RRR, +S1, Loud S2. no murmur, gallop, rubs. GI/Abdominal exam: Non-tender, Non-distended, normal bowel sounds, soft, no peritoneal signs. Extremities exam: full ROM, 1+ pedal edema, warm, pulses palpable in b/l lower extremities. no calf tenderness Neurological exam: CN II-XII intact, AO X3, no focal deficits. no pronater drift , facial droop, speech deficit Skin exam: Generalized rash, maculopapular, differing in size. Non tender without scales. Blanching. Bandage on Lt thigh at site of biopsy. Some targetoid lesions. No oral lesions. Pysch: Flat affect. - Assessment and Plan (1) Alcohol abuse Current Visit: Yes Status: Chronic Assessment and Plan: History of same, patient reports having quit alcohol for the past 3 years, will verify with family Alcohol level <10 Continue to monitor Will not initiate CIWA at this time No signs or symptoms of withdrawal continue to monitor 03/27 No signs or symptoms of withdrawal continue to monitor (2) HTN (hypertension) Current Visit: Yes Status: Chronic Assessment and Plan: controlled, continue home meds (3) Hyponatremia Current Visit: Yes Status: Acute Assessment and Plan: Presented with sodium of 121 to angie, with syncope Repeat Na here 124 without intervention Hypoosmolar, dilute urine Likely due to hypervolemia as patient also has pedal edema , with hx of heavy alcohol use, consider hyppalbuminemia Patient is also on multiple psych medications and 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 Urine osmolaity is low, 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 patient also has edema , and this may be due to cirrhosis TSH is WNL Na is improving Continue current management 03/26 Sodium 134 today we will continue with current management 03/27 Sodium stable (4) DVT prophylaxis Current Visit: Yes Status: Acute Assessment and Plan: SCDS due to thrombocytopenia (5) Hyperlipidemia Current Visit: Yes Status: Chronic Assessment and Plan: continue home meds (6) Bicytopenia Current Visit: Yes Status: Acute Assessment and Plan: Presented with anemia and thrombocytopenia He has a a medical history of anemia, recently as 02/20/18 had EGD and colonoscopy which showed gastritis and unremarkable findings respectively. No current source of bleeding Hep negative, Iron is low Onc eval is noted Will transfue for hb <7 Continue to monitor 03/26 Hematology has been consulted and appreciate recommendations B12 and folate Iron is low and ferritin is high-continue ferrous sulfate (7) Erythema multiforme Current Visit: Yes Status: Acute Assessment and Plan: Suspected Diffuse, recurrent according to patient, worsened in the past 2 weeks. The patient denies any fever or chills, denies sick contacts, denies genital lesions , he denies known history of hepatitis, he denies any oral lesions, however he has conjunctival injection. Hep panel negative, RPR negative HSV IgM and IgG pending, Mycoplasma, BOO, SPEP pending Derm consult appreciated Skin biopsy done by derm-recommend awaiting results, differentials include EM, vs urticarial vasculitis vs urticaria vs Sweet's syndrome vs Syphyilis Derm recommends awaiting biopsy result prior to treatment Patient complaining of bilateral knee joint pain, Xray shows no acute findings, he also has conjunctival injection, BOO is pending, Worsening conjunctival injectin, will start cipro eye drops and will consult rheumatology 03/26 Suspected See above Continue with the Cipro eyedrops rheumatology to see patient appreciate recommendations (8) Skin rash Current Visit: Yes Status: Acute Assessment and Plan: as above (9) Syncope Current Visit: Yes Status: Acute Assessment and Plan: Patient presented with syncope which was said to have lasted for about 2 minutes with no sequelae and no seizure-like movements, no bowel or urinary incontinence postevent. No preceding symptoms prior to event. Patient does report a history of diarrhea for the past 3 days, with poor oral intake. Mild leukocytosis with hypoosmolar hyponatremia on labs, improving Head CT unremarkable, no neuro deficits ECHO noted for LVEF 65%, Severe Pulm HTN, BBB, mild , normal wall motion Carotid doppler with no significant stenosis No events on tele, continue to monitor Fall precautions 03/26 Suspect may be related to dehydration-see above (10) Depression Current Visit: Yes Status: Chronic Assessment and Plan: continue home meds (11) Hypokalemia Current Visit: Yes Status: Resolved Assessment and Plan: resolved with treatment (12) Pedal edema Current Visit: Yes Status: Acute Assessment and Plan: ECHO noted-EF preserved Likely due to cirrhosis No ascites on exam Lasix po 40mg daily MOnitor I and Os 03/27 Has improved we will stop Lasix for now and continue to monitor - Time Spent with Patient Total time spent is greater than 50% in coordination of care (as documented) at patient's floor/unit and/or counseling patient: Internal Medicine: Result - Labs CBC & Chem 7: 03/27/18 07:41 03/27/18 07:41 Labs: Short CBC 03/27/18 Range/Units 07:41 WBC 5.7 (4.3-11.1) K/mcL Hgb 7.5 L (12.9-16.9) g/dL Hct 23.3 L (37.5-50.1) % Plt Count 170 (140-400) K/mcL Neutrophils # 3.0 (1.6-8.9) K/mcL BMP 03/27/18 07:41 Sodium 136 Potassium 3.8 Chloride 103 Carbon Dioxide 26 BUN 12 Creatinine 0.74 Glucose 110 H Calcium 8.9 - Impressions Impressions Chest CT 03/27/18 10:13 IMPRESSION: Pulmonary artery is enlarged, accounting for the finding on recent chest x-ray. Findings suggest underlying pulmonary arterial hypertension. Coronary artery disease is seen. There are few scattered indeterminate noncalcified pulmonary nodules measuring 5 mm in size or less RECOMMENDATIONS: Fleischner Society guidelines for follow-up and management of incidentally detected pulmonary nodules: Multiple Solid Nodules: Nodule size less than 6 mm In a low-risk patient, no routine follow-up. In a high-risk patient, optional CT at 12 months. . - Low risk patients include individuals with minimal or absent history of smoking and other known risk factors. - High risk patients include individuals with a history or smoking or known risk factors. Radiology 2017 http://pubs.rsna.org/doi/full/10.1148/radiol.[email or web address] D/ / Rk Alvarado MD / Rk Alvarado MD Interpreting Provider: Rk Alvarado MD Consult Discharge Plan - Plan Referrals: Brenda Koehler, DIRECTOR METABOLISM [Primary Care Provider] - (2) HTN (hypertension) Qualifiers: Hypertension type: essential hypertension Qualified Code(s): I10 - Essential (primary) hypertension (5) Hyperlipidemia Qualifiers: Hyperlipidemia type: unspecified Qualified Code(s): E78.5 - Hyperlipidemia, unspecified (9) Syncope Qualifiers: Syncope type: unspecified Qualified Code(s): R55 - Syncope and collapse (10) Depression Qualifiers: Depression Type: major depressive disorder Major depression recurrence: unspecified whether recurrent Active/Remission status: remission status unspecified Qualified Code(s): F32.9 - Major depressive disorder, single episode, unspecified
[2018-03-27] MEDS: traMADol 50 MG TABLET PO PRN (20:38)
[2018-03-28 04:28] LABS: Hematocrit 23.5 % (37.5-50.1); Hemoglobin 7.6 g/dL (12.9-16.9); Mean Corpuscular HGB Conc 32.3 g/dL (31.6-35.5); Mean Corpuscular Hemoglobin 35.2 pg (28.0-33.3); Mean Corpuscular Volume 108.8 fL (83.0-100.0); Mean Platelet Volume 10.3 fL (9.4-12.4); Platelet Count 175 K/mcL (140-400); Red Blood Count 2.16 M/mcL (4.19-5.50)
[2018-03-28] MEDS: Ciprofloxacin HCL Soln 5 ML BOTTLE BOTH EYES SCH ×4 (04:31→17:03)
[2018-03-28 04:49] LABS: BUN/Creatinine Ratio 16 (6-26); Blood Urea Nitrogen 12 mg/dL (8-23); Carbon Dioxide 25 mEq/L (23-29); Chloride 103 mEq/L (98-107); Glucose 114 mg/dL (70-105); Osmolality,Calculated 279 (280-300); Potassium 3.7 mEq/L (3.5-5.1); Sodium 134 mEq/L (136-145); eGFR For Non-African Americans > 60 (> 60)
[2018-03-28 05:40] LABS: Eosinophils # 0.1 K/mcL (0.0-0.6); Lymphocytes # 0.6 K/mcL (0.6-4.6); Monocytes # 0.8 K/mcL (0.0-1.3); Neutrophils # 4.3 K/mcL (1.6-8.9); Platelet Estimate Normal (Normal)
[2018-03-28 08:30] LABS: Mycoplasma pneumoniae IgG 0.28 U/L (<=0.09)
[2018-03-28] MEDS: traMADol 50 MG TABLET PO PRN (08:54)
[2018-03-28] MEDS: Ascorbic Acid 500 MG TABLET PO SCH (08:55)
[2018-03-28] MEDS: ARIPiprazole 10 MG TABLET PO SCH (08:55)
[2018-03-28] MEDS: BuPROPion SR (12 HR) 100 MG TABLET PO SCH (08:55)
[2018-03-28 08:59] LABS: Immunoglobulin G 1050 mg/dL (768-1632)
[2018-03-28 09:00] LABS: IFE Reflexed IFE Done; Immunoglobulin A 268 mg/dL (68-408); Immunoglobulin M 130 mg/dL (35-263)
[2018-03-28 09:36] LABS: Complement Component 3 111 mg/dL (88-201); Complement Component 4 27 mg/dL (10-40)
--- NOTE | 2018-03-28 10:45 | Rheumatology Progress Note ---
<Jose Luis Wilson - Last Filed: 03/28/18 16:39> Date of Encounter: 03/28/18 Time of Encounter: 10:43 Rheumatology Assess and Plan (1) Rash and other nonspecific skin eruption Current Visit: Yes Status: Acute 62M presents with intermittent erhythematous circular raised rash that is intermittend and started about six months ago. He reports no specific triggers. CT abdomen/pelvis: unremarkable. CXR/ CT: enlarged pulmonary arteries, scattered pulmonary nodules. Bilateral knee Xrays: left knee effusion with mild tricompartmental degenerative changes. EV Echo from 03/22: EF 65%, mild diastolic dysfunction, mild , severe pulmonary HTN. Skin biopsy done by derm on 03/23: results pending. hepatitis panel, RPR, HIV, HSV, negative ESR: 106 CRP: 86 C3,C4, Scl-70, CPK normal. Etiology unclear at this time. Suspect autoimmune cause. also consider iatrogenic cause, malignancy, infectious causes. 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 Plan: BOO, cryoglobulin, ANCA, polymerase-3 antibodies, pending. Appreciate Heme/onc and Derm recommendations. awaiting results from skin biopsy. Will hold off on treatment until Biopsy results are finalized. 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 (2) Polyarthralgia Current Visit: Yes Status: Acute patient reports pain in bilateral knees and shoulders. plan as above - Subjective Interval history: 68M evaluated at bedside. He denies nausea, vomiting, diarrhea, fever, chills, chest pain, shortness of breath. He denies any new complaints today. Exam Vital Signs, Last 4 Hours Temp Pulse Resp BP Pulse Ox 03/28/18 07:16 98.3 F 72 16 126/71 97 Exam: Exam: General: alert and oriented x3. obese. pleaseant, no acute distress. afebrile, normal heart rate, normotensive. ENT: normal inspection of ears, nose, nasal and oral mucosa. Oral mucosa appears moist. No lesions or masses of the lips or gums. CV: regular rate and rhythm, normal S1, S2, no murmurs, rubs, gallops, or thrills appreciated. +1 bilateral lower extremity pitting edema present. Eyes: no scleral icterus, PERRL, intact extraocular movements, normal appearing conjunctiva and eyelids. Respiratory: normal respiratory effort, no intercostal retraction or accessory muscle use. No dullness to percussion. Mild wheezping present on right lung. GI: abdomen obese, soft, non distended, non tender. Bowel sounds present. No organomegaly or hernias appreciated. SKin: No ulcers noted. Diffuse areas of erythematous circular patches present on bilateral thighs, legs, arms, back, and abdomen, and chest. No abnormal nail findings. neuro: cranial nerves 2-12 intact, no focal deficits. No pathologic reflexes present. intact sensation. MSK: No clubbing or cyanosis of the extremities present. Shoulders: patient cannot abduct the shoulders past 90 degrees due to pain. wrists/hands: full ROM, no erythema, warmth, tenderness bilateral knees: mild warmth, tenderness to palpation present. No effusion appreciated, no erythema. No laxity on varus or valgus stress. Anterior drawr test negative. Muscle strength: 5/5 on upper and lower extremities. normal range of motion of ankles Objective Data 03/28/18 03:38 03/28/18 03:38 Immunology IgG 1050 mg/dL (768-1632) 03/24/18 04:52 IgA 268 mg/dL (68-408) 03/24/18 04:52 IgM 130 mg/dL (35-263) 03/24/18 04:52 BOO Screen NONE DETECTED (None Detected) 03/22/18 17:24 Scl-70 IgG Ab 1 AU/mL (0-40) 03/25/18 13:54 Complement C3 111 mg/dL (88-201) 03/25/18 13:54 Complement C4 27 mg/dL (10-40) 03/25/18 13:54 All other labs normal. Consult Discharge Plan - Plan Referrals: Brenda Koehler, PRICING CLERK [Primary Care Provider] - <Levon Tabares - Last Filed: 03/28/18 17:34> Date of Encounter: 03/28/18 Exam Vital Signs, Last 4 Hours Temp Pulse Resp BP Pulse Ox 03/28/18 16:36 97.6 F 71 18 114/62 100 Objective Data 03/28/18 03:38 03/28/18 03:38 Immunology IgG 1050 mg/dL (768-1632) 03/24/18 04:52 IgA 268 mg/dL (68-408) 03/24/18 04:52 IgM 130 mg/dL (35-263) 03/24/18 04:52 BOO Screen NONE DETECTED (None Detected) 03/22/18 17:24 Scl-70 IgG Ab 1 AU/mL (0-40) 03/25/18 13:54 Complement C3 111 mg/dL (88-201) 03/25/18 13:54 Complement C4 27 mg/dL (10-40) 03/25/18 13:54 All other labs normal. - Attending Attestation I examined this patient and my medical decision making was reviewed with the resident physician. I agree with the documented findings, disposition and treatment as described with these exceptions. Over the weekend, CT scan done without any signs of parenchymal disease or lymphadenopathy. He has abnormal pulmonary arteries. Spoke with dermatology and biopsy results pending BOO negative, ScL70 negative. RNA polymerase III pending. At this time, no clear systemic autoimmune disease but will await biopsy results. Follow-up in rheumatology clinic in 1-2 weeks.
--- NOTE | 2018-03-28 11:36 | Internal Medicine Consult Note ---
Date of Encounter: 03/28/18 Time of Encounter: 11:36 - Assessment and plan (1) Alcohol abuse Current Visit: Yes Status: Chronic (2) HTN (hypertension) Current Visit: Yes Status: Chronic Qualifiers: Hypertension type: essential hypertension Qualified Code(s): I10 - Essential (primary) hypertension (3) Hyponatremia Current Visit: Yes Status: Acute (4) DVT prophylaxis Current Visit: Yes Status: Acute (5) Hyperlipidemia Current Visit: Yes Status: Chronic Qualifiers: Hyperlipidemia type: unspecified Qualified Code(s): E78.5 - Hyperlipidemia , unspecified (6) Bicytopenia Current Visit: Yes Status: Acute (7) Erythema multiforme Current Visit: Yes Status: Acute (8) Skin rash Current Visit: Yes Status: Acute (9) Syncope Current Visit: Yes Status: Acute Qualifiers: Syncope type: unspecified Qualified Code(s): R55 - Syncope and collapse (10) Depression Current Visit: Yes Status: Chronic Qualifiers: Depression Type: major depressive disorder Major depression recurrence: unspecified whether recurrent Active/Remission status: remission status unspecified Qualified Code(s): F32.9 - Major depressive disorder, single episode, unspecified (11) Hypokalemia Current Visit: Yes Status: Resolved (12) Pedal edema Current Visit: Yes Status: Acute - Time Spent With Patient Total time spent is greater than 50% in coordination of care (as documented) at patient's floor/unit and/or counseling patient: Internal Medicine - CN: HPI - Data of Consult Requesting Physician: Lori Cortez MD - Consult Narrative History of present illness: Mr. Condon is a 68 year old male 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 INFANT, - Social History Smoking Status: Never smoker Smokeless Tobacco Status: No Alcohol use: none Drug use: none - Family History Father Living Status: Hx Family Cardiac Disorders: Yes Internal Medicine - CN: Meds Omeprazole [PriLOSEC] 20 mg PO DAILY 03/20/15 [History] Simvastatin [Zocor] 20 mg PO HS 03/20/15 [History] Escitalopram [Lexapro] 20 mg PO DAILY 02/16/18 [History] Potassium Chloride [Klor-Con 10] 10 meq PO DAILY 02/16/18 [History] Tramadol HCl [Ultram] 50 mg PO BID PRN 02/16/18 [History] buPROPion HCl [Bupropion HCl Sr] 200 mg PO BID 02/16/18 [History] Ferrous Sulfate [Iron] 325 mg PO DAILY 02/17/18 [History] Aripiprazole [Abilify] 15 mg PO DAILY 03/25/18 [History] Losartan/Hydrochlorothiazide [Losartan-Hctz 50-12.5 mg Tab] 1 tab PO DAILY 03/25 [History] Minocycline [Minocin] 50 mg PO DAILY 03/25/18 [History] Omeprazole [PriLOSEC] 40 mg PO DAILY 03/25/18 [History] 3 Allergy/AdvReac Type Severity Reaction Status Date / Time No Known Allergies Allergy Verified 03/22/18 11:59 Hospitalist - CN: Exam - Constitutional Vitals: Temp Pulse Resp BP Pulse Ox 97.3 F L 68 17 124/72 96 03/28/18 11:23 03/28/18 11:23 03/28/18 11:23 03/28/18 11:23 03/28/18 11:23 Internal Medicine - CN: Reslt - Labs CBC & Chem 7: 03/28/18 03:38 03/28/18 03:38 Labs: Short CBC 03/28/18 Range/Units 03:38 WBC 6.0 (4.3-11.1) K/mcL Hgb 7.6 L (12.9-16.9) g/dL Hct 23.5 L (37.5-50.1) % Plt Count 175 (140-400) K/mcL Neutrophils # 4.3 (1.6-8.9) K/mcL BMP 03/28/18 03:38 Sodium 134 L Potassium 3.7 Chloride 103 Carbon Dioxide 25 BUN 12 Creatinine 0.76 Glucose 114 H Calcium 9.0 - Impressions Impressions Chest CT 03/27/18 10:13 IMPRESSION: Pulmonary artery is enlarged, accounting for the finding on recent chest x-ray. Findings suggest underlying pulmonary arterial hypertension. Coronary artery disease is seen. There are few scattered indeterminate noncalcified pulmonary nodules measuring 5 mm in size or less RECOMMENDATIONS: Fleischner Society guidelines for follow-up and management of incidentally detected pulmonary nodules: Multiple Solid Nodules: Nodule size less than 6 mm In a low-risk patient, no routine follow-up. In a high-risk patient, optional CT at 12 months. . - Low risk patients include individuals with minimal or absent history of smoking and other known risk factors. - High risk patients include individuals with a history or smoking or known risk factors. Radiology 2017 http://pubs.rsna.org/doi/full/10.1148/radiol.[email or web address] D/ / Rk Alvarado MD / Rk Alvarado MD Interpreting Provider: Rk Alvarado MD Consult Discharge Plan - Plan Referrals: Brenda Koehler CNP [Primary Care Provider] -
[2018-03-28] MEDS ORDERED: Furosemide 40 MG TABLET PO SCH (13:30)
--- NOTE | 2018-03-28 15:00 | Pulmonology Consult Note ---
<Young Hodges - Last Filed: 03/28/18 17:28> Date of Encounter: 03/28/18 Time of Encounter: 15:00 Assessment and Plan (1) Pulmonary HTN Status: Acute Echo showed RVSP of 65 mm Hg ,also showed evidence for moderately dilated left atrium suggesting pulmonary venous hypertension.. Patient denies any history of connective tissue disease like lupus or RA, HIV antigen test, SCl-70 were negative . He does endorse bilateral knee tenderness, shoulder and neck pain. PMHx also negative for cirrhosis, portal hypertension, sarcoidosis, COPD. Patient reports no difficulty sleeping at night and has no known diagnosis of obstructive sleep apnea. -Physical exam patient also has +1 pitting edema, endorses history of edema. lung sounds are clear to auscultation. -follow Up with pulmonology as an outpatient. Recommended restricted water intake (< 2L) and low salt diet. History of Present Illness Consult date: 03/28/18 Chief complaint: pulm HTN History of present illness: Mr. Condon is a has not 68-year-old nonsmoker male the past medical history of alcohol abuse(3 years ago) , attention, GERD, esophageal varices who was admitted to the floor because of syncope. Pulmonology was consulted because of pulmonary hypertension with RVSP of 65mm Hg. CT also showed a pulmonary arterial hypertension. She has a history of alcohol abuse and he quit 3 years ago, but denies any history of any blood clots or liver disease. She denies any history of coronary artery disease, or CHF, no history of any substance abuse like cocaine or methamphetamine, denies any history of lupus RA or other artery disease. He does have a history of bilateral joint tenderness. Denies any history of sleep apnea and has never used a CPAP or BiPAP. of note patient does have generalized blanching rash that he first noticed 7 months ago, which started from the arms but then progressively spread to his belly area. 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 , - Social History Smoking Status: Never smoker Smokeless Tobacco Status: No Alcohol use: none Drug use: none - Family History Father Living Status: Hx Family Cardiac Disorders: Yes Medications and Allergies Omeprazole [PriLOSEC] 20 mg PO DAILY 03/20/15 [History] Simvastatin [Zocor] 20 mg PO HS 03/20/15 [History] Escitalopram [Lexapro] 20 mg PO DAILY 02/16/18 [History] Potassium Chloride [Klor-Con 10] 10 meq PO DAILY 02/16/18 [History] Tramadol HCl [Ultram] 50 mg PO BID PRN 02/16/18 [History] buPROPion HCl [Bupropion HCl Sr] 200 mg PO BID 02/16/18 [History] Ferrous Sulfate [Iron] 325 mg PO DAILY 02/17/18 [History] Aripiprazole [Abilify] 15 mg PO DAILY 03/25/18 [History] Losartan/Hydrochlorothiazide [Losartan-Hctz 50-12.5 mg Tab] 1 tab PO DAILY 03/25 [History] Minocycline [Minocin] 50 mg PO DAILY 03/25/18 [History] Omeprazole [PriLOSEC] 40 mg PO DAILY 03/25/18 [History] ARIPiprazole [Abilify] 10 mg PO DAILY tablet 03/28/18 [Rx] BuPROPion SR (12 HR) [Wellbutrin SR] 200 mg PO BID tablet.er 03/28/18 [Rx] Furosemide [Lasix] 40 mg PO DAILY #14 tablet 03/28/18 [Rx] Losartan [Cozaar] 50 mg PO DAILY tablet 03/28/18 [Rx] 3 Allergy/AdvReac Type Severity Reaction Status Date / Time No Known Allergies Allergy Verified 03/22/18 11:59 All Systems: The remainder of the systems were reviewed and are negative Physical Examination Vital Signs: Vital Signs, Last 4 Hours Temp Pulse Pulse Pulse Pulse Resp BP 03/28/18 12:17 75 75 75 03/28/18 11:59 71 72 74 03/28/18 11:23 97.3 F L 68 17 124/72 BP BP BP Pulse Ox 03/28/18 12:17 118/73 119/72 124/69 03/28/18 11:59 120/63 113/70 119/66 03/28/18 11:23 96 General appearance: no acute distress Effort: normal Auscultation: bilateral: clear Cardiovascular: regular rate and rhythm (no Gallops, murmurs or rubs.) Gastrointestinal: soft, non-tender, non-distended Extremities: no cyanosis, no clubbing, edema (+1) Results - Laboratory Findings CBC and BMP: 03/28/18 03:38 03/28/18 03:38 Abnormal lab findings: Abnormal lab results RBC 2.16 M/mcL (4.19-5.50) L 03/28/18 03:38 Hgb 7.6 g/dL (12.9-16.9) L 03/28/18 03:38 Hct 23.5 % (37.5-50.1) L 03/28/18 03:38 MCV 108.8 fL (83.0-100.0) H 03/28/18 03:38 MCH 35.2 pg (28.0-33.3) H 03/28/18 03:38 Immature Gran % 12.6 % (0-4) H 03/27/18 07:41 Metamyelocytes % 2.0 % (0) H 03/28/18 03:38 Reactive Lymphocytes Present (Not Present) A 03/26/18 03:36 Toxic Granulation Present (Not Present) A 03/22/18 17:24 Large Platelets Present (Not Present) A 03/26/18 03:36 Immature Plt Fraction 9.0 % (1.1-6.1) H 03/23/18 05:01 Anisocytosis 1+ (Not Present) A 03/26/18 03:36 Macrocytosis Present (Not Present) A 03/24/18 04:52 ESR 106 mm/hr (0-10) H 03/25/18 13:54 Sodium 134 mEq/L (136-145) L 03/28/18 03:38 Glucose 114 mg/dL (70-105) H 03/28/18 03:38 POC Glucose 111 mg/dL (70-99) H 03/26/18 00:17 Calculated Osmolality 279 (280-300) L 03/28/18 03:38 Iron 13 mcg/dL (65-175) L 03/22/18 17:24 % Saturation 6 % (20-55) L 03/22/18 17:24 Transferrin 158 mg/dL (203-362) L 03/22/18 17:24 Ferritin 505 ng/mL (20-250) H 03/24/18 04:52 C-Reactive Protein 86 mg/L (Less than 10) H 03/25/18 13:54 Albumin (PEP) 2.88 g/dL (3.75-5.01) L 03/24/18 04:52 Sckbe-3-Wpdqbbesc 0.66 g/dL (0.19-0.46) H 03/24/18 04:52 Triglycerides 150 mg/dL (< 150) H 03/22/18 17:24 HDL Cholesterol 10 mg/dL (40-59) L 03/22/18 17:24 Cholesterol/HDL Ratio 9.5 (0-4.9) H 03/22/18 17:24 Folate 17.9 ng/mL (3.0-16.0) H 03/22/18 17:24 Ur Specific [place] 1.007 (1.010-1.025) L 03/22/18 17:30 Urine Ketones Trace mg/dL (Negative) H 03/22/18 17:30 Urine Osmolality 174 mOsm/kg (300-1090) L 03/22/18 17:30 Mycoplasma pneumon IgG 0.28 U/L (<=0.09) H 03/23/18 13:30 - Clinical Findings Intake & Output: Intake & Output 03/27/18 03/28/18 03/28/18 23:59 07:59 15:59 Intake Total 240 / 240 240 / 240 Output Total 275 / 275 300 / 300 Balance -35 / -35 -300 / -300 240 / 240 Weight 106.7 kg Consult Discharge Plan - Plan Referrals: Brenda Koehler, INVESTIGATOR INTERNAL AFFAIRS [Primary Care Provider] - (Hospital follow up appointment has been requested. Office will call you with date and time of appointment. If they do not call you, call them. ) Prescriptions: Furosemide [Lasix] 40 mg PO DAILY #14 tablet <Richard Solomon S - Last Filed: 03/28/18 20:54> Date of Encounter: 03/28/18 All Systems: The remainder of the systems were reviewed and are negative Results - Laboratory Findings CBC and BMP: 03/28/18 03:38 03/28/18 03:38 Abnormal lab findings: Abnormal lab results RBC 2.16 M/mcL (4.19-5.50) L 03/28/18 03:38 Hgb 7.6 g/dL (12.9-16.9) L 03/28/18 03:38 Hct 23.5 % (37.5-50.1) L 03/28/18 03:38 MCV 108.8 fL (83.0-100.0) H 03/28/18 03:38 MCH 35.2 pg (28.0-33.3) H 03/28/18 03:38 Immature Gran % 12.6 % (0-4) H 03/27/18 07:41 Metamyelocytes % 2.0 % (0) H 03/28/18 03:38 Reactive Lymphocytes Present (Not Present) A 03/26/18 03:36 Toxic Granulation Present (Not Present) A 03/22/18 17:24 Large Platelets Present (Not Present) A 03/26/18 03:36 Immature Plt Fraction 9.0 % (1.1-6.1) H 03/23/18 05:01 Anisocytosis 1+ (Not Present) A 03/26/18 03:36 Macrocytosis Present (Not Present) A 03/24/18 04:52 ESR 106 mm/hr (0-10) H 03/25/18 13:54 Sodium 134 mEq/L (136-145) L 03/28/18 03:38 Glucose 114 mg/dL (70-105) H 03/28/18 03:38 POC Glucose 111 mg/dL (70-99) H 03/26/18 00:17 Calculated Osmolality 279 (280-300) L 03/28/18 03:38 Iron 13 mcg/dL (65-175) L 03/22/18 17:24 % Saturation 6 % (20-55) L 03/22/18 17:24 Transferrin 158 mg/dL (203-362) L 03/22/18 17:24 Ferritin 505 ng/mL (20-250) H 03/24/18 04:52 C-Reactive Protein 86 mg/L (Less than 10) H 03/25/18 13:54 Albumin (PEP) 2.88 g/dL (3.75-5.01) L 03/24/18 04:52 Cruxd-8-Rsamgewsy 0.66 g/dL (0.19-0.46) H 03/24/18 04:52 Triglycerides 150 mg/dL (< 150) H 03/22/18 17:24 HDL Cholesterol 10 mg/dL (40-59) L 03/22/18 17:24 Cholesterol/HDL Ratio 9.5 (0-4.9) H 03/22/18 17:24 Folate 17.9 ng/mL (3.0-16.0) H 03/22/18 17:24 Ur Specific [place] 1.007 (1.010-1.025) L 03/22/18 17:30 Urine Ketones Trace mg/dL (Negative) H 03/22/18 17:30 Urine Osmolality 174 mOsm/kg (300-1090) L 03/22/18 17:30 Mycoplasma pneumon IgG 0.28 U/L (<=0.09) H 03/23/18 13:30 - Clinical Findings Intake & Output: Intake & Output 03/28/18 03/28/18 03/28/18 07:59 15:59 23:59 Intake Total 240 / 240 Output Total 300 / 300 Balance -300 / -300 240 / 240 Weight 106.7 kg - Attending Attestation I saw and evaluated this patient and my medical decision-making was reviewed with the Resident Physician. I agree with the documented findings, disposition and treatment plan as described except to the extent set forth below. We independently had [id number] contact with the patient Patient seen and examined at bedside Labs, radiology, chart personally reviewed. patient was consulted for evaluation of pulmonary hypertension with classical history of paroxysmal nocturnal dyspnea, orthopnea on and of pedal edema with ECHO showing dilated left atrium with preserved ejection fraction.. No clinical and biochemical evidence of rheumatological disease no clinical evidence of cirrhosis with portal hypertension. Patient might have sleep apnea will evaluate as an outpatient patient will need outpatient cardiology management for his chronic diastolic heart failure. The assessment and plan was conveyed to the primary hospitalist. Will follow-up as an outpatient.
[2018-03-28 16:37] VITALS: BP 114/62
--- NOTE | 2018-03-28 17:40 | Discharge Summary ---
- NOTES TO OUTPATIENT PROVIDER Notes to Outpatient Provider: Patient will need to follow-up with oncology concerning anemia and thrombocytopenia. 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 Dermatology follow-up. As well as pulmonology follow-up for pulmonary hypertension. Monitor CBC as well as chemistry due to hyponatremia-will have labs checked in 1 week Orders not resulted at time of discharge: Pending orders 03/23/18 19:13 Cryoglobulin Routine 03/25/18 13:54 Anti-Neutrophil Cyto Ab, IgG Routine MPO/PR3 (ANCA) Antibodies Routine RNA Polymerase III Ab IgG Routine Scleroderma (SCL-70) AB, IGG Routine 03/29/18 04:00 CBC [Complete Blood Count] [HEME] AM 0400 Chem 7 [Basic Metabolic Panel] AM 0400 Date of Encounter: 03/28/18 Time of Encounter: 17:38 - Discharge Diagnosis (1) Alcohol abuse Priority: Secondary Status: Chronic (2) HTN (hypertension) Priority: Secondary Status: Chronic Qualifiers: Hypertension type: essential hypertension Qualified Code(s): I10 - Essential (primary) hypertension (3) Hyponatremia Priority: Secondary Status: Acute (4) Hyperlipidemia Priority: Secondary Status: Chronic Qualifiers: Hyperlipidemia type: unspecified Qualified Code(s): E78.5 - Hyperlipidemia , unspecified (5) Bicytopenia Priority: Secondary Status: Acute (6) Erythema multiforme Priority: Secondary Status: Acute (7) Skin rash Priority: Secondary Status: Acute (8) Syncope Priority: Primary Status: Acute Qualifiers: Syncope type: unspecified Qualified Code(s): R55 - Syncope and collapse (9) Depression Priority: Secondary Status: Chronic Qualifiers: Depression Type: major depressive disorder Major depression recurrence: unspecified whether recurrent Active/Remission status: remission status unspecified Qualified Code(s): F32.9 - Major depressive disorder, single episode, unspecified (10) Hypokalemia Priority: Secondary Status: Resolved (11) Pedal edema Priority: Secondary Status: Acute Hospital course: Mr. Condon is a 68 year old male past medical history of alcohol abuse stopped drinking approximately 3 years ago GERD esophageal varices hyperlipidemia hypertension presented to the emergency department after experiencing syncopal episode and a skin rash. He had experienced 3 days of nonbloody nonmucoid diarrhea denies any chest pain or palpitations prior to the event. He has had rash for approximately 6 months. He had been referred to a stamping mill tender at one point and was placed on antibiotics. He did have a colonoscopy and EGD completed 02/2018 for iron deficiency anemia which showed gastritis as well as normal colonoscopy. H. pylori test was negative. No abdominal pain or dark tarry stools. Lab work did reveal hyponatremia leukocytosis and anemia thrombocytopenia. Hematology was calm consulted hepatitis panel and anemia workup was completed dermatology was consulted and skin biopsy was obtained. Echo and carotid Dopplers were obtained echo did reveal EF 65% severe pulmonary hypertension EVD mild left ear normal wall motion carotid Doppler with no significant stenosis. Orthostatic vital signs are completed rheumatology was also consulted-hepatitis panel RPR HIV HSV negative ESR was 106 CRP was 86 C3-C4 SCL 70 CPK normal etiology is unclear suspecting autoimmune cause concerns for recurrent renal vasculitis. Patient will follow-up with rheumatology and dermatology as outpatient. Chest x-ray was obtained which did not reveal outward bulging of the left-sided mediastinum differential considerations include enlargement of the main pulmonary artery adenopathy or mass. CT of chest with IV contrast was obtained and did reveal pulmonary artery enlargement suggesting underlying pulmonary arterial hypertension. Pulmonology did see the patient recommending follow-up as outpatient and water restricted diet less than 2 L as well as low-salt diet. No more syncopal episodes occurring during admission patient has been in ventilatory without any lightheadedness chest pain or shortness of breath. Suspect that patient's syncopal episode is related to dehydration and orthostatic changes aggravated by pulmonary hypertension I did discuss this case with pulmonology rheumatology oncology who are okay patient being discharged in following up with outpatient Advised patient to follow-up with primary care providers as well as oncology pulmonology rheumatology and dermatology. Patient verbalized understanding. Patient will be sent home on Lasix and he will follow-up with a CBC and Chem-7. He is hemodynamically stable at this time he is ready for discharge. Discharge discussed with: patient - Time Spent with Patient Total time spent providing and/or coordinating discharge services: - Discharge Medications Prescriptions: Furosemide [Lasix] 40 mg PO DAILY #14 tablet Home Medications: Omeprazole [PriLOSEC] 20 mg PO DAILY 03/20/15 [History] Simvastatin [Zocor] 20 mg PO HS 03/20/15 [History] Escitalopram [Lexapro] 20 mg PO DAILY 02/16/18 [History] Potassium Chloride [Klor-Con 10] 10 meq PO DAILY 02/16/18 [History] Tramadol HCl [Ultram] 50 mg PO BID PRN 02/16/18 [History] buPROPion HCl [Bupropion HCl Sr] 200 mg PO BID 02/16/18 [History] Ferrous Sulfate [Iron] 325 mg PO DAILY 02/17/18 [History] Aripiprazole [Abilify] 15 mg PO DAILY 03/25/18 [History] Losartan/Hydrochlorothiazide [Losartan-Hctz 50-12.5 mg Tab] 1 tab PO DAILY 03/25 [History] Minocycline [Minocin] 50 mg PO DAILY 03/25/18 [History] Omeprazole [PriLOSEC] 40 mg PO DAILY 03/25/18 [History] ARIPiprazole [Abilify] 10 mg PO DAILY tablet 03/28/18 [Rx] BuPROPion SR (12 HR) [Wellbutrin SR] 200 mg PO BID tablet.er 03/28/18 [Rx] Furosemide [Lasix] 40 mg PO DAILY #14 tablet 03/28/18 [Rx] Losartan [Cozaar] 50 mg PO DAILY tablet 03/28/18 [Rx] Allergies/Adverse Reactions: 3 Allergy/AdvReac Type Severity Reaction Status Date / Time No Known Allergies Allergy Verified 03/22/18 11:59 Date of admission: 03/26/18 17:54 Primary care physician: Brneda Koehler CNP Consults: 03/22/18 17:10 Consult to Dermatology [CONS] Routine Consulting Provider: Dermatology Alejandra Reason for Consult: Diffuse nodular skin rash and syncope Time Notified: 17:11 Call Completed: Yes 03/22/18 17:52 Consult to Oncology [CONS] Routine Consulting Provider: Oncology [facility] Reason for Consult: Erythema multiforme, skin rash, bicytopenia Call Completed: Yes 03/24/18 15:06 Consult to Physician [CONS] Stat Consulting Provider: Levon Tabares Reason for Consult: Suspect autoimmune disorder, skin rash, conjunctival injection Call Completed: No 03/28/18 13:26 Consult to Pulmonology [CONS] Routine Consulting Provider: [facility] Reason for Consult: pulmonary HTN Time Notified: 13:26 Call Completed: Yes Discharging clinician: Chelsi Lopez Anticipated date of discharge: 03/28/18 - Constitutional Vitals: Temp Pulse Resp BP Pulse Ox 97.6 F 71 18 114/62 100 03/28/18 16:36 03/28/18 16:36 03/28/18 16:36 03/28/18 16:36 03/28/18 16:36 General appearance: Present: A&O X 3 Exam: General: In no acute distress. Conversant. Obese. unkempt HEENT: Mild conjunctival injection. No oral or nasopharyngeal ulcers. Grossly normal hearing. Respiratory exam: CTAB. no accessory muscle use, rales, rhonchi, wheezes Cardiovascular exam: RRR, +S1, Loud S2. no murmur, gallop, rubs. GI/Abdominal exam: Non-tender, Non-distended, normal bowel sounds, soft, no peritoneal signs. Extremities exam: full ROM, 1+ pedal edema, warm, pulses palpable in b/l lower extremities. no calf tenderness Neurological exam: CN II-XII intact, AO X3, no focal deficits. no pronater drift , facial droop, speech deficit Skin exam: Generalized rash, maculopapular, differing in size. Non tender without scales. Blanching. Bandage on Lt thigh at site of biopsy. Some targetoid lesions. No oral lesions. Pysch: Flat affect. - Head Head exam: Present: atraumatic, normocephalic - Eye Eye exam: Present: PERRL, conjuntiva pink, sclera anicteric Pupils: Present: PERRL - Neck Neck exam general surgery: Present: supple, trachea midline. Absent: lymphadenopathy - Respiratory Respiratory exam: Present: CTAB. Absent: accessory muscle use, rales, rhonchi, wheezes - Cardiovascular Cardiovascular exam: Present: RRR, +S1, +S2. Absent: diastolic murmur, gallop, rubs, systolic murmur - GI/Abdominal GI/Abdominal exam: Present: normal bowel sounds, soft, no peritoneal signs. Absent: distended, tenderness - Extremities Exam Extremities exam: Present: pedal edema, warm, radial pulses palpable and symmetrical. Absent: calf tenderness, cyanotic - Neurological Exam Neurological exam: Present: CN II-XII intact, oriented X3, no focal deficits. Absent: pronater drift, facial droop, speech deficit - Skin Skin exam: Present: dry, intact - Patient Status Disposition: Home, Self-Care Condition: Good Functional capacity at discharge: independent ambulation Overall status at discharge: patient is back to baseline - Discharge Instructions Follow Up With: Brenda Koehler CNP [Primary Care Provider] - (Hospital follow up appointment has been requested. Office will call you with date and time of appointment. If they do not call you, call them. ) - Diet and Activity Activity: increase activity as tolerated Diet: low salt diet
--- NOTE | 2018-03-28 17:42 | Oncology Inp Progress Note ---
Date of Encounter: 03/28/18 Time of Encounter: 16:30 (1) Bicytopenia Status: Acute Assessment and plan: Acute macrocytic anemia, MCV 104 on admission Concomitant Acute thrombocytopenia- sondra 97--Resolved Hepatitis and HIV screen non reactive History of alcohol abuse, denies alcohol use x3 years Abdomen/Pelvis CT without findings of cirrhosis B12 and folate replete Iron low, add ferritin for completeness Colonoscopy:02/17/2018-normal EGD: Mild gastritis-biopsied Patient denies and recent s/s bleeding Elevated ESR and CRP Plan: Appreciate Rheumatology recommendations- BOO negative, ScL70 negative. RNA polymerase III pending. At this time no clear autoimmune disease is present, pending further work up-he is planned to follow up as an outpatient Transfuse PRN for hgb <7 or symptomatic if <8 SPEP resulted with no monoclonal protein Jes-Negative He continues to have a macrocytic anemia present, may consider further hematological workup pending on autoimmune dx and pending skin punch bx results , which may include bone marrow biopsy if we cannot find other cause He was given a follow up with Dr. Peterson as an outpatient (2) Skin rash Status: Acute Assessment and plan: Erythematous maculopapular rash x6 months Dermatology consulted-skin punch bx is pending Rheumatology consulted, recommendations reviewed Oncology: Subj Interval history: Mr. Condon is waitng in his chair, awaiting his discharge. He denies pain, SOB, bowel or urinary complaint or any s/s of bleeding. Continues to have bilateral knee pain with ambulation. Appetite normal. - Constitutional Vitals: Vital Signs Temp Pulse Pulse Pulse Pulse Resp BP 03/28/18 16:36 97.6 F 71 18 114/62 03/28/18 12:17 75 75 75 03/28/18 11:59 71 72 74 03/28/18 11:23 97.3 F L 68 17 124/72 03/28/18 07:16 98.3 F 72 16 126/71 03/28/18 02:37 99.1 F 71 16 122/63 03/27/18 23:27 98.6 F 71 16 126/63 03/27/18 19:03 98.1 F 64 16 111/68 BP BP BP Pulse Ox 03/28/18 16:36 100 03/28/18 12:17 118/73 119/72 124/69 03/28/18 11:59 120/63 113/70 119/66 03/28/18 11:23 96 03/28/18 07:16 97 03/28/18 02:37 98 03/27/18 23:27 96 03/27/18 19:03 98 Intake and Output 03/28/18 03/28/18 03/28/18 07:59 15:59 23:59 Intake Total 240 / 240 Output Total 300 / 300 Balance -300 / -300 240 / 240 Intake: Oral 240 / 240 Output: Urine 300 / 300 Other: Meal Lunch Percent of Meal Consumed 90% Weight 106.7 kg Patient Weight 03/28/18 23:59 Weight 106.7 kg General appearance: cooperative, no acute distress, no febrile - Head Head exam: Present: atraumatic - ENT ENT exam: Present: mucous membranes moist - Respiratory Respiratory exam: Present: CTAB. Absent: respiratory distress - Cardiovascular Cardiovascular exam: Present: RRR, +S1, +S2 - GI/Abdominal GI/Abdominal exam: Present: normal bowel sounds, soft. Absent: tenderness - Extremities Exam Extremities exam: Absent: calf tenderness - Neurological Exam Neurological exam: Present: alert, oriented X3, no focal deficits, strengths equal and symetr throughout - Skin Skin exam: Present: dry, warm Additional comments: diffuse maculopapular rash to trunk and all 4 extremities with some target lesions, blanchable Oncology: Obj Data - Labs CBC & Chem 7: 03/28/18 03:38 03/28/18 03:38 Consult Discharge Plan - Plan Referrals: Brenda Koehler CNP [Primary Care Provider] - (Hospital follow up appointment has been requested. Office will call you with date and time of appointment. If they do not call you, call them. ) Prescriptions: Furosemide [Lasix] 40 mg PO DAILY #14 tablet Inpatient Charges Provider: Maryam Macario CNP Follow up - Inpatient: [id number]
[2018-03-29 13:35] LABS: Myeloperoxidase Ab 0 AU/mL (0-19); Serine Protease-3 Antibody 15 AU/mL (0-19)
== END 2018-03-28 18:22 | disposition home or self-care (01) | DRG 813 ==
LOC: 3BNU → SUATTDRO 15:48
PROVIDERS: ADMIT Internal Medicine; ATTEND Internal Medicine